=== PATIENT | female | born 1930 | race Caucasian/White ===

== ENCOUNTER 2017-06-20 09:46 | Inpatient (IN) ==
[2017-06-17 15:38] LABS: Basophils # (Auto) 0 K/mcL (0.0-0.3); Basophils % (Auto) 0.3 % (0.0-2.0); Eosinophils # (Auto) 0.1 K/mcL (0.0-0.7); Eosinophils % (Auto) 1.1 % (0.0-7.0); Granulocytes % (Auto) 74.9 % (38.0-78.0); Lymphocytes # (Auto) 1.3 K/mcL (1.5-4.8); Lymphocytes % (Auto) 16.9 % (15.5-49.0); Mean Cell Volume 93.6 fL (80.0-100.0); Mean Corpuscular HGB Conc 34.2 g/dL (31.0-36.0); Monocytes # (Auto) 0.5 K/mcL (0.1-0.9); Monocytes % (Auto) 6.8 % (1.0-12.0); Platelet Count 271 K/mcL (140-440); RBC 3.95 M/mcL (4.00-5.20); Red Cell Distribution Width 14.5 % (11.5-14.5)
[2017-06-17 15:58] LABS: Blood Urea Nitrogen 23 mg/dl (8-23)
[~2017-06-20 09:46] MED LIST: KETOROLAC 30 MG, ROPIVACAINE HCL/PF 49.5 ML, EPINEPHrine 0.5 MG, 0.9 % SODIUM CHLORIDE ... IJ SCH; ceFAZolin 1 GM VIAL IV SCH
[2017-06-20] MEDS ORDERED: GENTAMICIN SULFATE 800 MG/20 ML VIAL IR ONE (11:15)
[2017-06-20] MEDS ORDERED: KETAMINE 10 MG/ML ML ONE (11:58)
[2017-06-20] MEDS ORDERED: LIDOCAINE HCL/PF 100 MG/5 ML SYRINGE IV ONE (11:58)
[2017-06-20] MEDS ORDERED: PROPOFOL 200 MG/20 ML VIAL IV ONE (11:58)
[2017-06-20] MEDS ORDERED: GLYCOPYRROLATE 0.2 MG/ML VIAL IV ONE (11:58)
[2017-06-20] MEDS ORDERED: PHENYLEPHRINE 10 MG/ML VIAL ONE (11:58)
[2017-06-20] MEDS ORDERED: ONDANSETRON 4 MG/2 ML VIAL ONE (11:58)
[2017-06-20] MEDS ORDERED: ePHEDrine 50 MG/ML AMPUL IV ONE (11:58)
[2017-06-20] MEDS ORDERED: MIDAZOLAM 2 MG/2 ML VIAL ONE (11:58)
[2017-06-20 12:28] LABS: Appearance,Urine CLEAR; Bilirubin,Urine NEG (NEG); Color,Urine PALE YELLOW; Glucose,Urine (UA) NORM (NEG); Leukocyte Esterase,Urine 1+ /uL (NEG); Nitrate,Urine NEG (NEG); Protein,Urine NEG (NEG); Urine Blood NEG mg/dL (<0.03); Urobilinogen,Urine NEG (NEG)
[2017-06-20 12:30] LABS: Bacteria,Urine 0 /hpf (0); Mucus,Urine FEW /hpf (0); Urine RBC 2 /hpf (0-1); Urine Squamous Epithelial Cell 2 /hpf (0-4); Urine WBC 20 /hpf (0-4)
[2017-06-20] MEDS ORDERED: MEPERIDINE 25 MG/ML SYRINGE IV PRN (13:30)
[2017-06-20] MEDS ORDERED: ONDANSETRON 4 MG/2 ML VIAL IV PRN ×2 (13:30→13:37)
[2017-06-20] MEDS ORDERED: METHOCARBAMOL 1,000 MG/10 ML VIAL IV PRN (13:30)
[2017-06-20] MEDS ORDERED: BENZOCAINE/MENTHOL 1 LOZENGE PO PRN ×2 (13:30→13:37)
[2017-06-20] MEDS ORDERED: IPRATROPIUM/ALBUTEROL 3 ML AMPUL.NEB NEB PRN (13:30)
[2017-06-20] MEDS ORDERED: fentaNYL 100 MCG/2 ML VIAL IV PRN (13:30)
[2017-06-20] MEDS ORDERED: LACTATED RINGERS 1,000 ML IV SCH (13:30)
[2017-06-20] MEDS ORDERED: FLEETS ADULT ENEMA PR PRN (13:37)
[2017-06-20] MEDS ORDERED: BISACODYL 10 MG SUPP.RECT PR PRN (13:37)
[2017-06-20] MEDS ORDERED: METHOCARBAMOL 750 MG TABLET PO PRN (13:37)
[2017-06-20] MEDS ORDERED: POLYETHYLENE GLYCOL 3350 17 GM PACKET PO PRN (13:37)
[2017-06-20] MEDS ORDERED: MAGNESIUM HYDROXIDE 30 ML ORAL.SUSP PO PRN (13:37)
[2017-06-20] MEDS ORDERED: TRANEXAMIC ACID 1,000 MG/10 ML VIAL IV SCH (13:37)
--- NOTE | 2017-06-20 13:50 | Brief Operative Note ---
Date of procedure: 06/20/17 Pre-op diagnosis: DJD right knee Post-op diagnosis: same Procedure: total knee replacement Grafts/Implants: Yes (TC3 DePuy) Anesthesia: GETA Findings: arthritis Complications: none Surgeon: Elgin Cerna Speech Language Therapist: Lorne Mandujano Estimated blood loss (cc): 250 Tourniquet Time (Minutes): 30 Specimens Removed/Pathology: none sent Condition: stable Disposition: PACU
--- NOTE | 2017-06-20 14:39 | XRay Report ---
CLINICAL INFORMATION: Postop total knee prostheses COMPARISON: None. FINDINGS: Total knee prostheses is anatomically aligned. There is no osseous abnormality. Soft tissue swelling seen as expected IMPRESSION: Negative Interpreted and Authenticated by: Bolivar Steel 06/20/17
--- NOTE | 2017-06-20 14:52 | Operative Note ---
DATE OF OPERATION: 06/20/2017 PREOPERATIVE DIAGNOSIS: DJD of the right knee. POSTOPERATIVE DIAGNOSIS: DJD of the right knee. OPERATION: Right total knee replacement. SURGEON: Elgin Cerna MD RACK CARRIER: Lorne Mandujano PA-C ANESTHESIA: General done by Dr. Lance. ESTIMATED BLOOD LOSS: 250 mL TOURNIQUET TIME: 30 minutes. SUMMARY OF PROCEDURE: General anesthesia was attained. The right leg was prepped and draped. No tourniquet was used during the exposure. An incision was made from the quadriceps to the tibial tubercle. It was taken down sharply to the quadriceps and medial retinaculum. These were split longitudinally. The patella was mobilized laterally. The fat pad was debrided. The anterior meniscus were resected. The ACL was released. The patient had no flexion contracture. She was in quite a bit of varus. The intramedullary canal of the femur was drilled and then reamed. The distal cut was made. We then exposed the tibia. This was reamed. The proximal guide was placed and the cut was made. The tibia sized to a 2-1/2. We then checked the flexion and extension gap and got a balance gap with a 15 mm trial. The femur was then sized to a 3. The rotation was adjusted to match [employer] line. The anterior, posterior, bevel, and notch cuts were made. The tibia was next prepared. This was done by drilling for a stem and then broaching. The patella was everted. Its thickness was 20 mm. I did a measured resection down to 12 mm. The patella sized to a 35. The internal release was done of the lateral retinaculum. The joint surfaces were thoroughly irrigated. Bone cement was applied to the components using the cement gun and also to the bone. The components were cemented in. The knee was held in full extension while the cement cured. Excess cement was removed throughout the curing process from the gutters using cebatomes and a hemostat. The tourniquet was let down. The tourniquet was only use for cementation. Bleeding points were coagulated. There was minimal bleeding. The no-touch test showed a lateral release was not needed. Stability during the surgery showed 2 mm of opening of the medial and lateral joint lines with varus and valgus stressing and 0, 45 and 90 degrees of flexion. The anterior drawer was minimal. There was no posterior drawer. The quadriceps was closed with buried sutures of #2 FiberWire. The medial retinaculum was closed with running locking 0 Maxon as this was the quadriceps (using a second layer). The subcutaneous tissue was closed with interrupted buried 2-0 Monocryl. The skin was closed with Dermabond. A sterile compressive dressing was applied. Throughout the case multimodal injection was done of the periosteum and muscle repairs using a total of 100 mL of mixture. Sponge and needle count was correct. The patient tolerated the procedure well and was taken to the recovery room in stable condition. TJF:dakota Job ID: [id number] Doc ID: [id number] Elgin Cerna MD
[2017-06-20] MEDS: 0.9 % SODIUM CHLORIDE 10 ML SYRINGE IV SCH ×2 (15:20→20:55)
[2017-06-20] MEDS: 0.9 % SODIUM CHLORIDE 1,000 ML IV SCH ×2 (15:20→23:30)
[2017-06-20] MEDS: HYDROcodone/APAP 10/325MG TABLET PO PRN ×2 (16:00→20:54)
[2017-06-20] MEDS: HYDROmorphone 2 MG/ML SYRINGE IV PRN ×2 (16:21→17:26)
[2017-06-20] MEDS: ceFAZolin 1 GM VIAL IV SCH (19:03)
[2017-06-20] MEDS: ATORVASTATIN 20 MG TABLET PO SCH (20:53)
[2017-06-20] MEDS: DOCUSATE SODIUM 100 MG CAPSULE PO SCH (20:53)
[2017-06-20] MEDS: SENNOSIDES 1 TABLET PO SCH (20:53)
[2017-06-20] MEDS: LATANOPROST OPHTH DROPS 2.5ML BOTTLE OU SCH (20:55)
[2017-06-21] MEDS: HYDROcodone/APAP 10/325MG TABLET PO PRN ×6 (00:44→20:59)
[2017-06-21] MEDS: ceFAZolin 1 GM VIAL IV SCH (03:30)
[2017-06-21] MEDS: 0.9 % SODIUM CHLORIDE 10 ML SYRINGE IV SCH ×3 (05:43→21:33)
[2017-06-21] MEDS: 0.9 % SODIUM CHLORIDE 1,000 ML IV SCH ×2 (05:43→09:19)
--- NOTE | 2017-06-21 06:37 | Orthopedic Progress Note ---
Subjective Patient information: Note initiated : 06/21/17 at 6:35 am Service Date, if different from initiated Date: [] Patient: Nga Krishnamurthy 86 y/o F admitted on 06/20/17 for Right Total Knee Arthroplasty. Chief Complaint: [] Principal diagnosis: knee joint replacement Objective Vital signs: Vital Signs Temp Pulse Pulse Resp BP BP Pulse Ox 06/21/17 04:00 97.5 F 54 L 14 148/66 95 06/20/17 23:11 52 L 14 97 06/20/17 23:10 97.6 F 52 L 14 111/58 88 L 06/20/17 21:01 98.1 F 59 L 16 136/66 97 06/20/17 20:00 95 06/20/17 17:00 54 L 16 170/70 99 06/20/17 16:30 57 L 16 150/70 99 06/20/17 16:00 55 L 16 152/70 97 06/20/17 15:45 53 L 16 170/90 98 06/20/17 15:30 62 16 166/69 97 06/20/17 15:15 56 L 16 160/73 96 06/20/17 15:00 97.1 F 57 L 16 152/59 98 06/20/17 14:48 97.6 F 60 19 159/48 97 06/20/17 14:43 60 15 163/54 97 06/20/17 14:28 65 18 147/54 100 06/20/17 14:23 60 18 144/50 100 06/20/17 14:18 61 15 159/46 100 06/20/17 14:13 59 L 16 154/54 100 06/20/17 14:08 60 16 145/48 100 06/20/17 14:03 62 17 147/50 100 06/20/17 13:58 98.0 F 100 H 17 131/42 95 06/20/17 09:46 98.2 F 38 L 16 169/82 94 Intake and Output 06/20/17 06/21/17 06/21/17 21:59 05:59 13:59 Intake Total 200 / 200 1560 / 1560 Output Total 51 / 51 252 / 252 Balance 149 / 149 1308 / 1308 Intake: IV 1000 / 1000 Sodium Chloride 0.9% 1,000 ml @ 1000 / 1000 100 mls/hr IV .Q10H ASTRID Rx#: [id number] Oral 200 / 200 560 / 560 Output: Void Amount 50 / 50 250 / 250 # of times incontinent of urine 2 / 2 Other: Meal Lunch Percent of Meal Consumed 75% Weight 150 lb 3.2 oz Intake & Output: Intake & Output 06/20/17 06/21/17 06/21/17 21:59 05:59 13:59 Intake Total 200 / 200 1560 / 1560 Output Total 51 / 51 252 / 252 Balance 149 / 149 1308 / 1308 Weight 150 lb 3.2 oz Intake: IV 1000 / 1000 Sodium Chloride 0.9% 1,000 ml @ 1000 / 1000 100 mls/hr IV .Q10H ASTRID Rx#: [id number] Oral 200 / 200 560 / 560 Output: Void Amount 50 / 50 250 / 250 # of times incontinent of urine 2 2 Other: Meal Lunch Percent of Meal Consumed 75% Dressing: Yes clean, Yes dry Weight bearing status: full Extremities exam IM: Yes Foot pink and warm, Yes neurovascular intact - Labs CBC & BMP: 06/17/17 14:42 06/17/17 14:41 Labs: Orthopedic Labs 06/17/17 14:42 PT 13.8 INR 1.0 06/21/17 06/17/17 06:00 14:42 Hgb Pending 12.6 Hct Pending 36.9 Assessment and Plan (1) Knee joint replacement status doing well. Continue PT and Lovenox Status: Acute Priority: High Qualifiers: Laterality: right Qualified Code(s): Z96.651 - Presence of right artificial knee joint
[2017-06-21] MEDS: ENOXAPARIN 30 MG/0.3 ML SYRINGE SQ SCH (09:16)
[2017-06-21] MEDS: SPIRONOLACTONE 25 MG TABLET PO SCH (09:17)
[2017-06-21] MEDS: THEOPHYLLINE ANHYDROUS 100 MG TAB.SR.12H PO SCH (09:17)
[2017-06-21] MEDS: OMEPRAZOLE 20 MG CAPSULE PO SCH (09:17)
[2017-06-21] MEDS: MAGNESIUM OXIDE 400 MG TABLET PO SCH (09:18)
[2017-06-21] MEDS: CALCIUM W/VIT D3 500 MG TABLET PO SCH (09:18)
[2017-06-21] MEDS: DOCUSATE SODIUM 100 MG CAPSULE PO SCH ×2 (09:18→20:11)
[2017-06-21] MEDS: FERROUS SULFATE 325 MG TABLET PO SCH (09:18)
[2017-06-21] MEDS: LOSARTAN 50 MG TABLET PO SCH (09:19)
[2017-06-21] MEDS: SENNOSIDES 1 TABLET PO SCH (20:10)
[2017-06-21] MEDS: ATORVASTATIN 20 MG TABLET PO SCH (20:11)
[2017-06-21] MEDS: LATANOPROST OPHTH DROPS 2.5ML BOTTLE OU SCH (20:11)
[2017-06-22] MEDS: HYDROcodone/APAP 10/325MG TABLET PO PRN ×2 (00:52→06:32)
[2017-06-22] MEDS: 0.9 % SODIUM CHLORIDE 10 ML SYRINGE IV SCH (05:15)
[2017-06-22] MEDS: OMEPRAZOLE 20 MG CAPSULE PO SCH (07:30)
[2017-06-22] MEDS ORDERED: ONDANSETRON ODT 4 MG TABLET SL ONE (07:47)
[2017-06-22] MEDS ORDERED: FLU VACC QS2017-18 36MOS UP/PF 60 MCG/0.5 ML SYRINGE IM ONE (09:00)
[2017-06-22] MEDS: LOSARTAN 50 MG TABLET PO SCH (09:01)
[2017-06-22] MEDS: FERROUS SULFATE 325 MG TABLET PO SCH (09:01)
[2017-06-22] MEDS: DOCUSATE SODIUM 100 MG CAPSULE PO SCH (09:01)
[2017-06-22] MEDS: MAGNESIUM OXIDE 400 MG TABLET PO SCH (09:01)
[2017-06-22] MEDS: CALCIUM W/VIT D3 500 MG TABLET PO SCH (09:01)
[2017-06-22] MEDS: ENOXAPARIN 30 MG/0.3 ML SYRINGE SQ SCH (09:02)
[2017-06-22] MEDS: THEOPHYLLINE ANHYDROUS 100 MG TAB.SR.12H PO SCH (09:03)
[2017-06-22] MEDS: SPIRONOLACTONE 25 MG TABLET PO SCH (09:06)
--- NOTE | 2017-06-22 09:47 | Orthopedic Progress Note ---
Subjective Patient information: Note initiated : 06/22/17 at 9:26 am Service Date, if different from initiated Date: [] Patient: Nga Krishnamurthy 86 y/o F admitted on 06/20/17 for Right Total Knee Arthroplasty. Chief Complaint: [] Principal diagnosis: knee joint replacement Interval history: Patient is feeling nauseas and weak this morning. She does not feel like leaving to a care facility currently. She denies any numbness/tingling, CP, PHELPS, or any other acute symptoms. Objective Vital signs: Vital Signs Temp Pulse Resp BP BP Pulse Ox 06/22/17 08:15 139/61 06/22/17 06:23 98.1 F 16 195/67 94 06/22/17 03:23 98.2 F 58 L 22 190/56 92 06/22/17 00:00 97.6 F 55 L 20 167/58 94 06/21/17 19:55 98.1 F 58 L 18 177/55 94 06/21/17 16:00 98.3 F 24 H 192/70 92 06/21/17 13:00 54 L 06/21/17 11:11 97.7 F 16 152/76 98 Intake and Output 06/21/17 06/22/17 06/22/17 21:59 05:59 13:59 Intake Total 640 / 640 500 / 500 Output Total 551 / 551 51 / 51 50 / 50 Balance 89 / 89 449 / 449 -50 / -50 Intake: Oral 640 / 640 500 / 500 Output: Void Amount 550 / 550 50 / 50 50 / 50 # of times incontinent of urine Other: Meal Dinner Percent of Meal Consumed Refused # Voids 1 Weight 153 lb Intake & Output: Intake & Output 06/21/17 06/22/17 06/22/17 21:59 05:59 13:59 Intake Total 640 / 640 500 / 500 Output Total 551 / 551 51 / 51 50 / 50 Balance 89 / 89 449 / 449 -50 / -50 Weight 153 lb Intake: Oral 640 / 640 500 / 500 Output: Void Amount 550 / 550 50 / 50 50 / 50 # of times incontinent of urine Other: Meal Dinner Percent of Meal Consumed Refused # Voids 1 Incision: Yes healing Incision clean and dry: Yes Weight bearing status: full Neurological exam IM: Yes neurovascular intact Extremities exam IM: No Ghassan's sign, Yes Foot pink and warm - Labs CBC & BMP: 06/22/17 05:14 06/17/17 14:41 Labs: Orthopedic Labs 06/17/17 14:42 PT 13.8 INR 1.0 06/22/17 06/21/17 06/17/17 05:14 06:00 14:42 Hgb 10.5 L 10.4 L 12.6 Hct 31.3 L 30.8 L 36.9 Assessment and Plan (1) Knee joint replacement status 1. Discharge to SNF 2. Follow up in 10 days with ortho. Status: Acute Priority: High Qualifiers: Laterality: right Qualified Code(s): Z96.651 - Presence of right artificial knee joint
[2017-06-23] MEDS ORDERED: ALENDRONATE SODIUM 70 MG TABLET PO SCH (07:30)
== END 2017-06-22 09:50 | DRG 470 ==
LOC: MEDSUR 09:46
PROVIDERS: ADMIT Orthopaedic Surgery Foot and Ankle Surgery; ATTEND Orthopaedic Surgery Foot and Ankle Surgery

== ENCOUNTER 2020-04-14 17:20 | Inpatient (IN) ==
[2020-04-14] MEDS ORDERED: IOPAMIDOL 100 ML BOTTLE IV ONE (17:21)
[2020-04-14] MEDS ORDERED: 0.9 % SODIUM CHLORIDE 1,000 ML IV ONE ×3 (17:41→19:58)
--- NOTE | 2020-04-14 18:12 | Emergency Department Note ---
Weakness HPI General Chief complaint: Weakness Stated complaint: Weakness, Decreased appetite, fever Time Seen by Provider: 04/14/20 17:35 Source: patient Mode of arrival: wheelchair Limitations: no limitations History of Present Illness HPI Narrative: Narrative: 89-year-old female who was feeling weak and recently developed a fever today. Complaining of cough. Denies other sick exposures. Denies difficulty urinating or with a bowel movement. Loss of appetite noted. She is also complaining of some generalized back pain which is new with the fever Related Data Home Medications Medication Instructions Recorded Confirmed alendronate 70 mg PO WEEKLY 06/17/17 04/14/20 hydrocodone-acetaminophen 1 - 2 tab PO Q4HP PRN 06/17/17 04/14/20 latanoprost 1 gtt OU HS 06/17/17 04/14/20 gabapentin 300 mg capsule 300 mg PO TID 05/06/18 04/14/20 famotidine 20 mg PO DAILY 11/07/18 04/14/20 losartan 100 mg PO QDAY 04/14/20 04/14/20 Previous Rx's Medication Instructions Recorded hydrochlorothiazide 25 mg tablet 25 mg PO QDAY #90 tab 11/10/19 cholecalciferol (vitamin D3) 50 2,000 unit PO QDAY #90 tab 03/08/20 mcg (2,000 unit) tablet Allergies Allergy/AdvReac Type Severity Reaction Status Date / Time atorvastatin Allergy Unknown Joint pain Verified 03/08/20 09:22 bupivacaine [From Marcaine] Allergy Unknown Local Verified 03/08/20 09:22 Reaction Review of Systems ROS ROS Narrative: Narrative: All systems ED: reviewed and negative except as stated. [facility] Narrative Patient History Narrative: Narrative: Medical/Surgical/Family History All Active Problems Pulmonary embolus (Acute) GI bleed (Acute) Weakness (Acute) Degenerative joint disease of low back (Acute) Sepsis (Acute) Pneumonia (Acute) Anemia in stage 3 chronic kidney disease (Chronic) Secondary hyperparathyroidism of renal origin (Chronic) Hyperkalemia, diminished renal excretion (Acute) Right renal atrophy (Chronic) Benign hypertension with CKD (chronic kidney disease) stage III (Chronic) Chronic kidney disease, stage III (moderate) (Chronic) Sciatica (Chronic) Osteoporosis (Chronic) Colon cancer (Chronic ~2005) Obstructive sleep apnea (Chronic) Neuralgia (Chronic) Insomnia (Chronic) Hypertension (Chronic) Hyperlipidemia (Chronic) Glaucoma (Chronic) Fatigue (Chronic) Diverticulosis (Chronic) Depression (Chronic) CAD (coronary artery disease) (Chronic) Bradycardia (Chronic) Barretts esophagus (Chronic) Anemia (Chronic) Knee joint replacement status (Chronic) Medical History Anemia (Chronic) Barretts esophagus (Chronic) Bradycardia (Chronic) CAD (coronary artery disease) (Chronic) Colon cancer (Chronic ~2005) Depression (Chronic) Diverticulosis (Chronic) Fatigue (Chronic) Glaucoma (Chronic) Hyperlipidemia (Chronic) Hypertension (Chronic) Insomnia (Chronic) Neuralgia (Chronic) Obstructive sleep apnea (Chronic) Osteoporosis (Chronic) Sciatica (Chronic) Surgical History History of arthroscopic knee surgery (Chronic) Left History of carpal tunnel surgery of right wrist (Chronic 09/23/87) History of cataract surgery (Chronic ~09/23/11) History of cholecystectomy (Chronic ~09/23/1959) History of colonoscopy (Chronic) History of esophagogastroduodenoscopy (EGD) (Chronic) History of hysterectomy (Chronic ~09/23/1957) History of tonsillectomy (Chronic) History of total right knee replacement (Chronic) Family History Sister , Age 65 Acute myocardial infarction Diabetes Renal failure Family history of Gout Heart disease Kidney disease Father Migraines Acute myocardial infarction Mother , Age 75 Heart disease Cerebrovascular accident Hypertensive CHF Acute myocardial infarction Brother , Age 40 Sarcoma Traumatic injury Social History Smoking Status: Current every day smoker Alcohol Intake Frequency: does not drink Substance Use: does not use Exam Narrative Narrative: Narrative: Febrile. Appears ill. Normocephalic atraumatic. Conjunctive are clear sclerae white nonicteric. No nasal discharge or congestion. Oropharynx with tacky buccal mucosa-she appears dehydrated. Neck is supple without lymphadenopathy or thyromegaly. Heart is regular rate and rhythm. Lungs are clear to auscultation bilaterally without wheezes rales rhonchi or respiratory distress. Abdomen is soft nontender nondistended. No peritoneal signs or guarding. No pedal edema-I did look at her legs that she was complaining of some leg pain I do not see any erythema or any sores or other signs of infection or DVT. She is arousable but she does seem sluggish and slow to respond. General Limitations: no limitations Course Vital Signs Vital signs: Vital Signs Temperature 99.9 F H 04/14/20 17:22 Pulse Rate 103 H 04/14/20 17:22 Respiratory Rate 20 04/14/20 17:22 Blood Pressure 89/75 04/14/20 17:22 Pulse Oximetry (%) 91 04/14/20 17:22 Temperature 99.0 F 04/14/20 22:14 Pulse Rate 82 04/14/20 22:14 Respiratory Rate 15 04/14/20 22:14 Blood Pressure 133/80 04/14/20 22:04 Pulse Oximetry (%) 93 04/14/20 22:14 MDM MDM Narrative Medical decision making narrative: Narrative: Ordered chest x-ray EKG and laboratory work-up. Start treatment with IV fluids. We will check for COVID virus as she is febrile with a cough. Other things in the differential which could cause fever cough and weakness include pneumonia UTI abdominal infections like diverticulitis Chest x-ray shows possible pneumonia Laboratory is not very revealing with a normal lactic acid and no leukocytosis. Urinalysis looked normal. However she is noted to have elevated procalcitonin 0.24. We started Zosyn. Blood pressure was trending down so we continued to treat with IV fluids. She got 2 L before she went to the CT scanner to further investigate the cause for her fever. CT scan of the chest abdomen pelvis showed thyroid nodule and bilateral pneumonia with 2 PEs. Right heart strain is not seen however. We will start Lovenox 1 mg/kg therapeutic dose for the PEs. She is not on blood thinners prior to this-I did discuss this with her but she does not recall having previous pulmonary emboli despite this being on her chart. After giving her the Zosyn wrote for a dose of vancomycin. After coming back from the CT scan her blood pressure normalized. I discussed the case with Dr. Nazario, our hospitalist. He agreed to accept the patient for further care and evaluation. We will continue the Zosyn and vancomycin. As needed Levophed if her blood pressure starts trending down again. She will go to the ICU. I wrote for transition order Lab Data Lab results reviewed: Yes I reviewed the patient's lab results. Result diagrams: 04/14/20 18:16 04/14/20 18:16 Labs: Lab Results 04/14/20 04/14/20 04/14/20 Range/Units 18:15 18:16 18:16 WBC 9.6 (4.50-11.00) K/mcL RBC 3.73 (3.59-5.38) M/mcL Hgb 11.5 (11.2-15.7) g/dL Hct 35.9 (34.1-44.9) % MCV 96.2 (80.0-100.0) fL MCH 30.8 (26.0-34.0) pg MCHC 32.0 (31.0-36.0) g/dL RDW 14.4 (11.5-14.5) % Plt Count 240 (140-440) K/mcL MPV 9.9 (7.4-10.4) fL Gran % 82.3 H (38.0-78.0) % Lymph % (Auto) 8.2 L (15.5-49.0) % Dickinson % (Auto) 7.8 (1.0-12.0) % Eos % (Auto) 1.5 (0.0-7.0) % Baso % (Auto) 0.2 (0.0-2.0) % Gran # 7.87 (1.80-8.00) K/mcL Lymph # (Auto) 0.78 L (1.50-4.80) K/mcL Dickinson # (Auto) 0.75 (0.10-0.90) K/mcL Eos # (Auto) 0.14 (0.00-0.70) K/mcL Baso # (Auto) 0.02 (0.00-0.30) K/mcL VBG Lactic Acid (0.5-2.0) mmol/L Sodium 136 (133-145) mmol/L Potassium 4.5 (3.3-5.1) mmol/L Chloride 101 (96-108) mmol/L Carbon Dioxide 22 (22-30) mmol/L Anion Gap 13.0 (8-16) BUN 20 (8-23) mg/dl Creatinine 1.3 H (0.6-1.1) mg/dl GFR Calculation 36 Glucose 120 H (70-105) mg/dL Calcium 9.3 (8.6-10.4) mg/dl Magnesium 1.5 L (1.6-2.5) mg/dL Total Bilirubin 0.7 (0.0-1.0) mg/dL AST 10 (0-37) U/l ALT 5 (0-40) U/l Alkaline Phosphatase 92 (39-117) U/L Total Protein 5.7 L (5.9-8.4) gm/dL Albumin 2.9 L (3.2-5.2) gm/dL Globulin 2.8 (2.2-3.7) gm/dL Albumin/Globulin Ratio 1.0 (1.0-2.3) Procalcitonin 0.24 (<0.10) ng/mL Urine Color Urine Appearance Urine pH (5.0-9.0) Ur Specific [place] (1.000-1.035) Urine Protein (NEG) mg/dL Urine Glucose (UA) (NEG) mg/dL Urine Ketones (NEG) mg/dL Urine Occult Blood (<0.03) mg/dL Urine Nitrate (NEG) Urine Bilirubin (NEG) mg/dL Urine Urobilinogen (NEG) mg/dL Ur Leukocyte Esterase (NEG) /uL Urine RBC (0-1) /hpf Urine WBC (0-4) /hpf Ur Squamous Epith Cells (0-4) /hpf Ur Transition Epith Cell (0-2) /hpf Urine Bacteria (0) /hpf Urine Mucus (0) /hpf Ur Culture Indicated? 04/14/20 04/14/20 Range/Units 18:16 20:50 WBC (4.50-11.00) K/mcL RBC (3.59-5.38) M/mcL Hgb (11.2-15.7) g/dL Hct (34.1-44.9) % MCV (80.0-100.0) fL MCH (26.0-34.0) pg MCHC (31.0-36.0) g/dL RDW (11.5-14.5) % Plt Count (140-440) K/mcL MPV (7.4-10.4) fL Gran % (38.0-78.0) % Lymph % (Auto) (15.5-49.0) % Dickinson % (Auto) (1.0-12.0) % Eos % (Auto) (0.0-7.0) % Baso % (Auto) (0.0-2.0) % Gran # (1.80-8.00) K/mcL Lymph # (Auto) (1.50-4.80) K/mcL Dickinson # (Auto) (0.10-0.90) K/mcL Eos # (Auto) (0.00-0.70) K/mcL Baso # (Auto) (0.00-0.30) K/mcL VBG Lactic Acid 1.1 (0.5-2.0) mmol/L Sodium (133-145) mmol/L Potassium (3.3-5.1) mmol/L Chloride (96-108) mmol/L Carbon Dioxide (22-30) mmol/L Anion Gap (8-16) BUN (8-23) mg/dl Creatinine (0.6-1.1) mg/dl GFR Calculation Glucose (70-105) mg/dL Calcium (8.6-10.4) mg/dl Magnesium (1.6-2.5) mg/dL Total Bilirubin (0.0-1.0) mg/dL AST (0-37) U/l ALT (0-40) U/l Alkaline Phosphatase (39-117) U/L Total Protein (5.9-8.4) gm/dL Albumin (3.2-5.2) gm/dL Globulin (2.2-3.7) gm/dL Albumin/Globulin Ratio (1.0-2.3) Procalcitonin (<0.10) ng/mL Urine Color Yellow Urine Appearance Clear Urine pH 6.0 (5.0-9.0) Ur Specific [place] 1.016 (1.000-1.035) Urine Protein 30 A (NEG) mg/dL Urine Glucose (UA) Negative (NEG) mg/dL Urine Ketones Neg (NEG) mg/dL Urine Occult Blood Neg (<0.03) mg/dL Urine Nitrate Neg (NEG) Urine Bilirubin Neg (NEG) mg/dL Urine Urobilinogen Neg (NEG) mg/dL Ur Leukocyte Esterase Neg (NEG) /uL Urine RBC 0 (0-1) /hpf Urine WBC 2 (0-4) /hpf Ur Squamous Epith Cells 0 (0-4) /hpf Ur Transition Epith Cell < 1 (0-2) /hpf Urine Bacteria 0 (0) /hpf Urine Mucus Few (0) /hpf Ur Culture Indicated? No Radiology Data Radiology results reviewed: Yes I reviewed the patient's radiology results. Radiology results narrative: Chest x-ray shows possible right lower lobe pneumonia EKG Data EKG #1: EKG attestation: Yes I reviewed and interpreted this EKG. EKG results narrative: EKG just shows atrial fibrillation CC TIME Critical Care Time Critical Care Time: Yes Total Critical Care Time: 30 Attestation: 30 minutes of additional critical care time which includes reviewing her studies, serial exams and evaluation, documentation and coordination of care. I was immediately available to the patient the entire time she was in the ER Discharge Plan Patient/Caregiver Discharge Instructions Pt seen by DIRECTOR OF VALUATION/PA only: No Clinical Impression: Sepsis Qualifiers: Sepsis type: sepsis due to unspecified organism Sepsis acute organ dysfunction status: with acute organ dysfunction Severe sepsis acute organ dysfunction type: unspecified Severe sepsis shock status: without septic shock Qualified Code(s): A41.9 - Sepsis, unspecified organism Pulmonary embolus Qualifiers: Pulmonary embolism type: other Chronicity: acute Acute cor pulmonale presence: without acute cor pulmonale Qualified Code(s): I26.99 - Other pulmonary embolism without acute cor pulmonale Pneumonia Qualifiers: Pneumonia type: due to unspecified organism Laterality: bilateral Lung location: lower lobe of lung Qualified Code(s): J18.9 - Pneumonia, unspecified organism Patient Disposition: Xfer As Inpt ([facility]) Condition: Critical Follow up with: Jannette Gutierrez MD [Primary Care Provider] - Prescriptions: No Action hydrochlorothiazide 25 mg tablet 25 mg PO QDAY Qty: 90 RF: 1 gabapentin 300 mg capsule 300 mg PO TID RF: 0 cholecalciferol (vitamin D3) 50 mcg (2,000 unit) tablet 2,000 unit PO QDAY Qty: 90 RF: 4 latanoprost 1 GTT bottle 1 gtt OU HS RF: 0 alendronate 70 MG tablet 70 mg PO WEEKLY RF: 0 hydrocodone-acetaminophen 1 EACH tablet 1 - 2 tab PO Q4HP PRN (Reason: Pain) RF: 0 famotidine 20 MG tablet 20 mg PO DAILY RF: 0 losartan 50 mg tablet 100 mg PO QDAY RF: 0
[2020-04-14 19:19] LABS: ALT/SGPT 5 U/l (0-40); AST/SGOT 10 U/l (0-37); Albumin 2.9 gm/dL (3.2-5.2); Alkaline Phosphatase 92 U/L (39-117); Bilirubin,Total 0.7 mg/dL (0.0-1.0); Blood Urea Nitrogen 20 mg/dl (8-23); Calcium 9.3 mg/dl (8.6-10.4); Carbon Dioxide 22 mmol/L (22-30); Chloride 101 mmol/L (96-108); Globulin 2.8 gm/dL (2.2-3.7); Glomerular Filtration Rate 36; Glucose 120 mg/dL (70-105)
[2020-04-14 19:22] LABS: Basophils # (Auto) 0.02 K/mcL (0.00-0.30); Basophils % (Auto) 0.2 % (0.0-2.0); Eosinophils # (Auto) 0.14 K/mcL (0.00-0.70); Eosinophils % (Auto) 1.5 % (0.0-7.0); Granulocytes % (Auto) 82.3 % (38.0-78.0); Hematocrit 35.9 % (34.1-44.9); Hemoglobin 11.5 g/dL (11.2-15.7); Lymphocytes # (Auto) 0.78 K/mcL (1.50-4.80); Lymphocytes % (Auto) 8.2 % (15.5-49.0); Mean Cell Volume 96.2 fL (80.0-100.0); Mean Platelet Volume 9.9 fL (7.4-10.4); Monocytes # (Auto) 0.75 K/mcL (0.10-0.90); Monocytes % (Auto) 7.8 % (1.0-12.0); Platelet Count 240 K/mcL (140-440); RBC 3.73 M/mcL (3.59-5.38); Red Cell Distribution Width 14.4 % (11.5-14.5); WBC 9.6 K/mcL (4.50-11.00)
[2020-04-14] MEDS ORDERED: ACETAMINOPHEN 325 MG TABLET PO ONE (19:26)
[2020-04-14] MEDS ORDERED: PIPERACILLIN SODIUM/TAZOBACTAM 3.375 GM in DEXTROSE 5% IN WATER 50 ML IV ONE (21:43)
[2020-04-14 21:52] LABS: Appearance,Urine CLEAR; Bacteria,Urine 0 /hpf (0); Bilirubin,Urine NEG (NEG); Color,Urine YELLOW; Culture Indicated,Urine NO; Glucose,Urine (UA) NEGATIVE (NEG); Ketones,Urine NEG (NEG); Leukocyte Esterase,Urine NEG /uL (NEG); Mucus,Urine FEW /hpf (0); Nitrate,Urine NEG (NEG); Protein,Urine 30 mg/dL (NEG); Specific Gravity,Urine 1.016 (1.000-1.035); Urine Blood NEG mg/dL (<0.03); Urine RBC 0 /hpf (0-1); Urine Squamous Epithelial Cell 0 /hpf (0-4); Urine Transitional Epi Cells < 1 /hpf (0-2); Urine WBC 2 /hpf (0-4); Urobilinogen,Urine NEG (NEG)
[2020-04-14] MEDS ORDERED: ENOXAPARIN 80 MG/0.8 ML SYRINGE SQ ONE (22:30)
[2020-04-14] MEDS ORDERED: VANCOMYCIN 1,000 MG in 0.9 % SODIUM CHLORIDE 250 ML IV ONE (22:31)
[2020-04-14] MEDS ORDERED: ONDANSETRON 4 MG/2 ML VIAL IV PRN (22:34)
[2020-04-14] MEDS ORDERED: 0.9 % SODIUM CHLORIDE 250 ML IV PRN (22:45)
[2020-04-14] MEDS ORDERED: 0.9 % SODIUM CHLORIDE 1,000 ML IV SCH ×2 (22:45→23:30)
[2020-04-14] MEDS ORDERED: NOREPINEPHRINE BITARTRATE 16 MG in 0.9 % SODIUM CHLORIDE 234 ML IV SCH (22:45)
[2020-04-14] MEDS ORDERED: MAGNESIUM SULFATE 2 GM/50 ML BAG IV PRN (23:23)
[2020-04-14] MEDS ORDERED: ACETAMINOPHEN 325 MG TABLET PO PRN (23:23)
[2020-04-14] MEDS ORDERED: IPRATROPIUM/ALBUTEROL 3 ML AMPUL.NEB NEB PRN (23:23)
[2020-04-14] MEDS ORDERED: POTASSIUM CHLORIDE 20 MEQ TABLET PO PRN ×2 (23:23)
[2020-04-14] MEDS ORDERED: POTASSIUM CHLORIDE 40 MEQ in DEXTROSE 5% IN WATER 500 ML IV PRN (23:23)
[2020-04-14] MEDS ORDERED: MAGNESIUM SULFATE 8.12 MEQ in DEXTROSE 5% IN WATER 50 ML IV ONE (23:23)
[2020-04-14] MEDS ORDERED: SENNOSIDES 1 TABLET PO PRN (23:23)
[2020-04-14] MEDS ORDERED: POLYETHYLENE GLYCOL 3350 17 GM PACKET PO PRN (23:23)
--- NOTE | 2020-04-14 23:23 | Internal Med History&Physical ---
HPI History of Present Illness Patient information: Note initiated : 04/14/20 at 11:09 pm Service Date, if different from initiated Date: [] Patient: Nga Krishnamurthy a 89 y/o F admitted on for Weakness, Decreased appetite, fever. Chief Complaint: [] History of present illness: Ms. Krishnamurthy is a 89 year old F Zentz to the ED with increased weakness poor appetite and cough for about 3 days. She does not recall if she has been fevers. She has about a UA today in the ED and found to be mildly hypotensive initially and tachycardic. She received several liters of fluid which brought her blood pressure up to the low 100s. CT chest abdomen pelvis showed some bilateral lower lobe infiltrates as well as some PEs in the right upper lobe and lower lobe lung. CT also showed right hilar lymphadenopathy. She does have a history of PE and was on Eliquis in the past but that was stopped in October 2018 because of GI bleed. And old notes show chronic bradycardia but she has declined a pacemaker although her heart rate here is tachycardic, unknown what baseline value is. Procalcitonin is borderline at 0.24. Lactate is okay. Patient was recently admitted to [facility] for significant weakness and recently also been into the [facility] ER for suspected opioid overdose., Blood pressure was elevated. Diagnosed with UTI. No showed atrial fibrillation. Review of Systems: Pertinent positives as above. Denies headache/fever/chills/nausea/vomiting/chest or abdominal pain/diarrhea. Remaining 10 point review of system reviewed negative PFSH PFS Medical History Anemia (Chronic) Barretts esophagus (Chronic) Bradycardia (Chronic) CAD (coronary artery disease) (Chronic) Colon cancer (Chronic ~2005) Depression (Chronic) Diverticulosis (Chronic) Fatigue (Chronic) Glaucoma (Chronic) Hyperlipidemia (Chronic) Hypertension (Chronic) Insomnia (Chronic) Neuralgia (Chronic) Obstructive sleep apnea (Chronic) Osteoporosis (Chronic) Sciatica (Chronic) Surgical History History of arthroscopic knee surgery (Chronic) Left History of carpal tunnel surgery of right wrist (Chronic 09/23/87) History of cataract surgery (Chronic ~09/23/11) History of cholecystectomy (Chronic ~09/23/1959) History of colonoscopy (Chronic) History of esophagogastroduodenoscopy (EGD) (Chronic) History of hysterectomy (Chronic ~09/23/1957) History of tonsillectomy (Chronic) History of total right knee replacement (Chronic) Family History Sister , Age 65 Acute myocardial infarction Diabetes Renal failure Family history of Gout Heart disease Kidney disease Father Migraines Acute myocardial infarction Mother , Age 75 Heart disease Cerebrovascular accident Hypertensive CHF Acute myocardial infarction Brother , Age 40 Sarcoma Traumatic injury Social History (Updated 03/08/20 @ 09:39 by Celeste Zhu MD) marital status: occupational status: retired occupation: RN physical activity: none smoking status: Current every day smoker alcohol intake frequency: does not drink substance use type: does not use seatbelt use: always MEDS/ALLERGIES Home Medications and Allergies Home Medications Medication Instructions Recorded Confirmed Type alendronate 70 mg PO WEEKLY 06/17/17 04/14/20 History hydrocodone-acetaminophen 1 - 2 tab PO Q4HP PRN 06/17/17 04/14/20 History latanoprost 1 gtt OU HS 06/17/17 04/14/20 History gabapentin 300 mg capsule 300 mg PO TID 05/06/18 04/14/20 History famotidine 20 mg PO DAILY 11/07/18 04/14/20 History hydrochlorothiazide 25 mg tablet 25 mg PO QDAY #90 tab 11/10/19 04/14/20 Rx cholecalciferol (vitamin D3) 50 2,000 unit PO QDAY #90 tab 03/08/20 04/14/20 Rx mcg (2,000 unit) tablet losartan 100 mg PO QDAY 04/14/20 04/14/20 History Allergies Allergy/AdvReac Type Severity Reaction Status Date / Time atorvastatin Allergy Unknown Joint pain Verified 03/08/20 09:22 bupivacaine [From Marcaine] Allergy Unknown Local Verified 03/08/20 09:22 Reaction EXAM Constitutional Vitals: Temp Pulse Resp BP Pulse Ox 99.0 F 79 18 98/81 95 04/14/20 22:14 04/14/20 23:02 04/14/20 23:02 04/14/20 23:02 04/14/20 23:02 Exam: General: Lethargic, No acute Distress Eyes/N/T: EOMI, PERRL, dry MM Head/Neck: neck supple, normocephalic atraumatic CV: RRR, No murmurs, normal s1/s2 Pulm: Clear b/l, no wheezing/rhonchi/rales Abd: soft, nontender, +BS x4 Ext: no clubbing/cyanosis/edema Neuro: Drowsy but awakens to voice. Follows commands. no focal deficits, moves all extremities, CN 2-12 grossly intact, symmetrical strength b/l upper/lower, sensations intact b/l upper/lower Skin: warm/dry DATA Data Completed and Pending Labs on day of discharge: Labs from last 24 hours 04/14/20 04/14/20 04/14/20 20:50 18:57 18:50 WBC RBC Hgb Hct MCV MCH MCHC RDW Plt Count MPV Gran % Lymph % (Auto) [place] % (Auto) Eos % (Auto) Baso % (Auto) Gran # Lymph # (Auto) [place] # (Auto) Eos # (Auto) Baso # (Auto) Total Counted Band Neutrophils % Platelet Estimate RBC Morphology VBG Lactic Acid Sodium Potassium Chloride Carbon Dioxide Anion Gap BUN Creatinine GFR Calculation Glucose Calcium Magnesium Total Bilirubin AST ALT Alkaline Phosphatase C-Reactive Protein Pending Total Protein Albumin Globulin Albumin/Globulin Ratio Procalcitonin Urine Color Yellow Urine Appearance Clear Urine pH 6.0 Ur Specific [place] 1.016 Urine Protein 30 A Urine Glucose (UA) Negative Urine Ketones Neg Urine Occult Blood Neg Urine Nitrate Neg Urine Bilirubin Neg Urine Urobilinogen Neg Ur Leukocyte Esterase Neg Urine RBC 0 Urine WBC 2 Ur Squamous Epith Cells 0 Ur Transition Epith Cell < 1 Urine Bacteria 0 Urine Mucus Few Ur Culture Indicated? No Nasal/Oral COVID-19 PCR Pending COVID-19 PCR Interp Pending 04/14/20 04/14/20 04/14/20 18:50 18:16 18:16 WBC RBC Hgb Hct MCV MCH MCHC RDW Plt Count MPV Gran % Lymph % (Auto) [place] % (Auto) Eos % (Auto) Baso % (Auto) Gran # Lymph # (Auto) [place] # (Auto) Eos # (Auto) Baso # (Auto) Total Counted Pending Band Neutrophils % Not Reportable Platelet Estimate Pending RBC Morphology Pending VBG Lactic Acid 1.1 Sodium 136 Potassium 4.5 Chloride 101 Carbon Dioxide 22 Anion Gap 13.0 BUN 20 Creatinine 1.3 H GFR Calculation 36 Glucose 120 H Calcium 9.3 Magnesium 1.5 L Total Bilirubin 0.7 AST 10 ALT 5 Alkaline Phosphatase 92 C-Reactive Protein Total Protein 5.7 L Albumin 2.9 L Globulin 2.8 Albumin/Globulin Ratio 1.0 Procalcitonin Urine Color Urine Appearance Urine pH Ur Specific [place] Urine Protein Urine Glucose (UA) Urine Ketones Urine Occult Blood Urine Nitrate Urine Bilirubin Urine Urobilinogen Ur Leukocyte Esterase Urine RBC Urine WBC Ur Squamous Epith Cells Ur Transition Epith Cell Urine Bacteria Urine Mucus Ur Culture Indicated? Nasal/Oral COVID-19 PCR COVID-19 PCR Interp 04/14/20 04/14/20 18:16 18:15 WBC 9.6 RBC 3.73 Hgb 11.5 Hct 35.9 MCV 96.2 MCH 30.8 MCHC 32.0 RDW 14.4 Plt Count 240 MPV 9.9 Gran % 82.3 H Lymph % (Auto) 8.2 L [place] % (Auto) 7.8 Eos % (Auto) 1.5 Baso % (Auto) 0.2 Gran # 7.87 Lymph # (Auto) 0.78 L [place] # (Auto) 0.75 Eos # (Auto) 0.14 Baso # (Auto) 0.02 Total Counted Band Neutrophils % Platelet Estimate RBC Morphology VBG Lactic Acid Sodium Potassium Chloride Carbon Dioxide Anion Gap BUN Creatinine GFR Calculation Glucose Calcium Magnesium Total Bilirubin AST ALT Alkaline Phosphatase C-Reactive Protein Total Protein Albumin Globulin Albumin/Globulin Ratio Procalcitonin 0.24 Urine Color Urine Appearance Urine pH Ur Specific [place] Urine Protein Urine Glucose (UA) Urine Ketones Urine Occult Blood Urine Nitrate Urine Bilirubin Urine Urobilinogen Ur Leukocyte Esterase Urine RBC Urine WBC Ur Squamous Epith Cells Ur Transition Epith Cell Urine Bacteria Urine Mucus Ur Culture Indicated? Nasal/Oral COVID-19 PCR COVID-19 PCR Interp A/P Narrative A/P Narrative: A: *PNA: *Sepsis w/hypotension (responded to IVFs) and AMS: *PE, right lung: -on room air currently *Generalized weakness/deconditioning: Has been hospitalized at [facility] recently and was in the ER at [facility] prior to that *CKD III: *HTN: *GERD: *Tobacco abuse: *Hypomagnesemia: *Afib: not on anticoag, did have h/o GI bleed 10/2018 and eliquis was stopped (believe this was for prior PE) *Gout: P: -IVF's -Zosyn, pending MRSA screen, BC/SC -Lovenox to NOAC -mag replace -hold home ARB/hctz for low bp - -pt/ot -ppx: lovenox/home H2 DNR Time Spent With Patient Time: Total time spent is greater than 50% in coordination of care (as documented) at patient's floor/unit and/or counseling patient:
[2020-04-14 23:25] LABS: Lymphocytes % 10 % (15-49); Monocytes % (Manual) 5 % (1-12); Platelet Estimate NORMAL (NORMAL); RBC Morphology NORMAL (NORMAL); Segmented Neutrophils % 85 % (38-78)
[2020-04-14] MEDS ORDERED: METOPROLOL TARTRATE 5 MG/5 ML VIAL IV PRN (23:29)
[2020-04-15] MEDS ORDERED: MAGNESIUM SULFATE 0 GM/0 ML BAG IV ONE (00:03)
[2020-04-15] MEDS ORDERED: MAGNESIUM SULFATE 8.12 MEQ/2 ML VIAL ONE (00:07)
[2020-04-15] MEDS: 0.9 % SODIUM CHLORIDE 10 ML SYRINGE IV SCH ×3 (05:57→21:02)
[2020-04-15] MEDS: PIPERACILLIN SODIUM/TAZOBACTAM 3.375 GM in DEXTROSE 5% IN WATER 50 ML IV SCH ×3 (05:57→21:02)
[2020-04-15 06:31] LABS: Basophils # (Auto) 0.01 K/mcL (0.00-0.30); Basophils % (Auto) 0.1 % (0.0-2.0); Eosinophils # (Auto) 0.04 K/mcL (0.00-0.70); Eosinophils % (Auto) 0.6 % (0.0-7.0); Granulocytes % (Auto) 81.5 % (38.0-78.0); Hematocrit 31.2 % (34.1-44.9); Lymphocytes % (Auto) 8.6 % (15.5-49.0); Mean Cell Volume 99.7 fL (80.0-100.0); Mean Corpuscular HGB Conc 32.1 g/dL (31.0-36.0); Mean Platelet Volume 9.8 fL (7.4-10.4); Monocytes # (Auto) 0.64 K/mcL (0.10-0.90); Monocytes % (Auto) 9.2 % (1.0-12.0); Platelet Count 202 K/mcL (140-440); RBC 3.13 M/mcL (3.59-5.38); Red Cell Distribution Width 14.6 % (11.5-14.5)
[2020-04-15 06:45] LABS: ALT/SGPT < 5 U/l (0-40); AST/SGOT 8 U/l (0-37); Albumin 2.3 gm/dL (3.2-5.2); Alkaline Phosphatase 71 U/L (39-117); Bilirubin,Direct < 0.2 mg/dL (0.0-0.3); Bilirubin,Total 0.4 mg/dL (0.0-1.0); Blood Urea Nitrogen 17 mg/dl (8-23); Carbon Dioxide 20 mmol/L (22-30); Chloride 104 mmol/L (96-108); Globulin 2.4 gm/dL (2.2-3.7); Glomerular Filtration Rate 40; Glucose 103 mg/dL (70-105); Lactate Dehydrogenase 182 U/L (94-250); Phosphorous 2.9 mg/dL (2.7-4.5); Triglycerides 62 mg/dl (<150); Uric Acid 5.4 mg/dL (2.5-8.0)
--- NOTE | 2020-04-15 07:41 | Internal Med Progress Note ---
SUBJECTIVE Subjective Patient information: Note initiated : 04/15/20 at 7:37 am Service Date, if different from initiated Date: [] Patient: Nga Krishnamurthy a 89 y/o F admitted on 04/14/20 for Weakness, Decreased appetite, fever. Chief Complaint: [] Interval history: Ms. Krishnamurthy is a 89 year old F Zentz to the ED with increased weakness poor appetite and cough for about 3 days. She does not recall if she has been fevers. She has about a UA today in the ED and found to be mildly hypotensive initially and tachycardic. She received several liters of fluid which brought her blood pressure up to the low 100s. CT chest abdomen pelvis showed some bilateral lower lobe infiltrates as well as some PEs in the right upper lobe and lower lobe lung. CT also showed right hilar lymphadenopathy. She does have a history of PE and was on Eliquis in the past but that was stopped in October 2018 because of GI bleed. And old notes show chronic bradycardia but she has declined a pacemaker although her heart rate here is tachycardic, unknown what baseline value is. Procalcitonin is borderline at 0.24. Lactate is okay. Patient was recently admitted to [facility] for significant weakness and recently also been into the [facility] ER for suspected opioid overdose., Blood pressure was elevated. Diagnosed with UTI. No showed atrial fibrillation. 04/15 No overnight or new complaints. Blood pressure stable overnight. Review of Systems: denies headache/fever/chills/nausea/vomiting/chest or abdominal pain/cough/d yspnea. Otherwise see above. Constitutional Vitals: Vital Signs Temp Pulse Resp BP Pulse Ox 97.0 F 72 14 141/62 96 04/15/20 04:00 04/15/20 06:31 04/15/20 06:31 04/15/20 06:31 04/15/20 06:31 Period Temp Pulse Resp BP Sys/[place] Pulse Ox Last 24 Hr 97.0 F-99.9 F 38-161 12-33 75-149/45-89 28-98 Intake and Output 04/14/20 04/15/20 04/15/20 21:59 05:59 13:59 Intake Total 1999 352 50 Output Total 1 Balance 1999 352 49 Weight 66.678 kg 70.896 kg Intake & Output: Intake & Output 04/14/20 04/15/20 04/15/20 21:59 05:59 13:59 Intake Total 1999 352 50 Output Total 1 Balance 1999 352 49 Weight 66.678 kg 70.896 kg Intake: IV 1999 352 50 Sodium Chloride 0.9% 1,000 ml @ 2000 Wide Open IV BOLUS ONE Rx#: [id number] Magnesium Sulfate 8.12 Meq In 52 Dextrose 5% in Water 50 ml @ 52 mls/hr IV ONCE ONE Rx#: [id number] Zosyn 3.375 gm In Dextrose 5% 50 50 in Water 50 ml @ 100 mls/hr IV Q8H ASTRID Rx#:[id number] Vancomycin 1,000 mg In Sodium 250 Chloride 0.9% 250 ml @ 250 mls/ hr IV ONCE ONE Rx#:[id number] Oral 0 Output: # of times incontinent of urine 1 Other: Urine Appearance Fem Cath Clear Urine Color Fem Cath Dark Yellow Exam: General: awake, No acute Distress Eyes/N/T: EOMI, Head/Neck: neck supple, CV: RRR, No murmurs, normal s1/s2 Pulm: mild b/l rhonchi, no wheezing Abd: soft, nontender, +BS x4 Ext: no clubbing/cyanosis/edema Neuro: awake and more alert today. Follows commands. no focal deficits, Skin: warm/dry OBJ DATA Labs CBC & Chem 7: 04/15/20 05:05 04/15/20 05:05 Labs: Abnormal Lab Results 04/15/20 04/15/20 04/14/20 05:05 05:05 20:50 RBC 3.13 L Hgb 10.0 L Hct 31.2 L RDW 14.6 H Gran % 81.5 H Lymph % (Auto) 8.6 L Lymph # (Auto) 0.60 L Seg Neutrophils % Lymphocytes % Carbon Dioxide 20 L Creatinine 1.2 H Glucose Calcium 8.0 L Magnesium C-Reactive Protein Total Protein 4.7 L Albumin 2.3 L Urine Protein 30 A 04/14/20 04/14/20 04/14/20 18:50 18:50 18:16 RBC Hgb Hct RDW Gran % Lymph % (Auto) Lymph # (Auto) Seg Neutrophils % 85 H Lymphocytes % 10 L Carbon Dioxide Creatinine 1.3 H Glucose 120 H Calcium Magnesium 1.5 L C-Reactive Protein 22.5 H Total Protein 5.7 L Albumin 2.9 L Urine Protein 04/14/20 18:16 RBC Hgb Hct RDW Gran % 82.3 H Lymph % (Auto) 8.2 L Lymph # (Auto) 0.78 L Seg Neutrophils % Lymphocytes % Carbon Dioxide Creatinine Glucose Calcium Magnesium C-Reactive Protein Total Protein Albumin Urine Protein Meds: Medications Acetaminophen (Tylenol) 650 mg PO Q6HP PRN PRN Reason: PAIN/FEVER > 101 Albuterol/Ipratropium (Duoneb) 3 ml NEB Q4HP PRN PRN Reason: Shortness Of Breath Docusate Sodium (Colace) 100 mg PO BID [facility] Enoxaparin Sodium (Lovenox) 60 mg SQ DAILY [facility] Gabapentin (Neurontin) 300 mg PO TID [facility] Norepinephrine Bitartrate 16 (mg/ Sodium Chloride) 250 mls @ 9.375 mls/hr IV Q24H [facility]; Protocol Sodium Chloride (Sodium Chloride 0.9%) 250 mls @ 20 mls/hr IV .[id number] PRN PRN Reason: Hypotension Piperacillin Sod/Tazobactam (Sod 3.375 gm/ Dextrose) 50 mls @ 100 mls/hr IV Q8H [facility]; Protocol Last Infusion: 04/15/20 06:33 Dose: Infused Documented by: Potassium Chloride 40 meq/ (Dextrose) 520 mls @ 130 mls/hr IV UD PRN PRN Reason: Potassium < 3 Magnesium Sulfate (Magnesium Sulfate) 2 gm in 50 mls @ 50 mls/hr IV UD PRN PRN Reason: Magnesium </= 1.6 Sodium Chloride (Sodium Chloride 0.9%) 1,000 mls @ 100 mls/hr IV .Q10H [facility] Stop: 04/15/20 19:29 Last Admin: 04/15/20 00:08 Dose: 100 mls/hr Documented by: Latanoprost (Xalatan Ophth Drops) 1 gtt OU HS [facility] Metoprolol Tartrate (Lopressor) 5 mg IV Q2HP PRN PRN Reason: Tachyarrhythmias HR>110 Ondansetron HCl (Zofran) 4 mg IV Q4HP PRN PRN Reason: Nausea And Vomiting Pantoprazole Sodium (Protonix) 40 mg IV QAMAC ASTRID Polyethylene Glycol (Miralax) 17 gm PO DAILYP PRN PRN Reason: Constipation Potassium Chloride (Kdur) 40 meq PO UD PRN PRN Reason: Potssium is 3-3.5 Potassium Chloride (Kdur) 40 meq PO UD PRN PRN Reason: Potassium < 3 Senna (Senokot) 2 tab PO DAILYP PRN PRN Reason: Constipation Sodium Chloride (Saline Flush) 10 ml IV Q8 [facility] Last Admin: 04/15/20 05:57 Dose: 10 ml Documented by: A/P Narrative A/P Narrative: A: *PNA: -strep neg *Sepsis w/Hypotension (responded to IVFs) and AMS: improved *PE, right lung: -on 2L NC with sats mid-high 90's *Generalized weakness/deconditioning: Has been hospitalized at [facility] recently and was in the ER at [facility] prior to that *CKD III: *HTN: *GERD: *Tobacco abuse: *Hypomagnesemia: improved *Afib: not on anticoag, did have h/o GI bleed 10/2018 and eliquis was stopped (believe this was for prior PE) -HR controlled w/o meds *Gout: P: -IVF's d/c -Zosyn, d/c vanco today,BC/SC -prn supp O2 -Lovenox to NOAC -restart home ARB in AM, hold home hctz for now -hold narcotics until mentation improved -pt/ot -Smoking cessation counseling -ppx: lovenox/home H2 DNR Time Spent With Patient Time: Total time spent is greater than 50% in coordination of care (as documented) at patient's floor/unit and/or counseling patient: QUALITY VTE Deep Vein Thrombosis/Pulmonary Embolism Present on Admission: Yes
--- NOTE | 2020-04-15 07:42 | XRay Report ---
HISTORY: Fever with shortness of breath FINDINGS: Heart is mild to moderately enlarged. This is unchanged since 11/07/18. Prominent increased interstitial lung markings are present in the lung bases, right greater than left. There may be a small right-sided pleural effusion. Moderate size retrocardiac hiatus hernia is again seen. There is no lobar consolidation. Calcified paratracheal lymph nodes are noted in the seen previously. The interstitial lung disease is a chronic or recurrent finding which was present at the time of prior chest CT done on 06/12/18. IMPRESSION: Mild interstitial lung disease in both lower lobes and small right-sided pleural effusion. This could be due to congestive heart failure or pneumonia. Underlying pulmonary fibrosis may be present. Stable cardiomegaly Interpreted and Authenticated by: Marquis Beckwith 04/15/20
[2020-04-15] MEDS: PANTOPRAZOLE 40 MG VIAL IV SCH (08:02)
--- NOTE | 2020-04-15 08:14 | Cat Scan Report ---
History: Fever, increased weakness, decreased appetite, back pain TECHNIQUE: Following injection of intravenous nonionic contrast the patient was scanned during the arterial phase from the thoracic inlet through the symphysis pubis. Sagittal and coronal reformats were created along with axial MIPS images of the chest. The radiation exposure was limited using dose reduction technology. FINDINGS: CHEST: There are multiple pulmonary emboli in the right lung involving all lobes. There is also a linear band of organized clot at the bifurcation of the right upper and right lower lobe pulmonary arteries. The central pulmonary artery is normal. There may be a small clot in a peripheral branch of the left lower lobe. A small layering right-sided pleural effusion is present. Right lung volume is smaller than the left. There is mild consolidation in the right lower lobe. There are bands of atelectasis and inferior segment lingula. There is also mild compressive atelectasis in the medial basal segment of the left lower lobe. Patient has a large retrocardiac hiatus hernia creating the compressive atelectasis. There is no evidence of a lung mass. There are a few reactive lymph nodes in the mediastinum. The heart is mildly enlarged. There is a moderate amount of atherosclerotic plaque in the coronary arteries. The aorta is normal in caliber and also has plaque. Patient has a goiter with nodules in both lobes of thyroid. Abdomen and pelvis: There are couple small cysts in the right lobe of liver. The liver is normal in size. There may be mild generalized fatty infiltration. The gallbladder is been removed. The bile ducts are nondilated. The pancreas, spleen and kidneys are normal. There is mild hyperplasia of the left adrenal. The right adrenal is normal. Densely calcified plaques are present along the wall of the aorta. The aorta is normal in caliber. There is a large amount of fecal material in the colon. There is no evidence of bowel obstruction. Multiple noninflamed diverticula are seen in the descending and sigmoid colon. The uterus and ovaries have been removed. The urinary bladder is unopacified but appears normal. Grade 2 spondylolisthesis is present at L5-S1 due to bilateral spondylolysis defects. There is an old moderate wedge compression fracture involving superior endplate of T12. Chronic advanced disc degeneration is seen at L2-3, L3-4, L4-5 and L5-S1. The fracture or degenerative changes in the spine are unchanged from the prior CT scan done on 11/07/18. IMPRESSION: Multiple pulmonary emboli in the right lung. Atelectasis or pneumonia in the right lower lobe Large hiatus hernia Small right-sided pleural effusion Diverticulosis but without diverticulitis Interpreted and Authenticated by: Marquis Beckwith 04/15/20
[2020-04-15] MEDS: DOCUSATE SODIUM 100 MG CAPSULE PO SCH ×2 (08:52→21:01)
[2020-04-15] MEDS: GABAPENTIN 300 MG CAPSULE PO SCH ×3 (08:53→21:00)
[2020-04-15] MEDS: hydrALAZINE 20 MG/ML VIAL IV PRN (12:43)
[2020-04-15] MEDS ORDERED: NOREPINEPHRINE BITARTRATE 16 MG in 0.9 % SODIUM CHLORIDE 234 ML IV PRN (14:15)
[2020-04-15] MEDS ORDERED: LATANOPROST OPHTH DROPS 2.5ML BOTTLE OU SCH (21:00)
[2020-04-15] MEDS: ENOXAPARIN 60 MG/0.6 ML SYRINGE SQ SCH (21:00)
[2020-04-16] MEDS: PIPERACILLIN SODIUM/TAZOBACTAM 3.375 GM in DEXTROSE 5% IN WATER 50 ML IV SCH ×3 (05:12→21:27)
[2020-04-16] MEDS: 0.9 % SODIUM CHLORIDE 10 ML SYRINGE IV SCH ×5 (05:15→21:03)
[2020-04-16 06:33] LABS: Basophils # (Auto) 0.01 K/mcL (0.00-0.30); Basophils % (Auto) 0.2 % (0.0-2.0); Eosinophils # (Auto) 0.03 K/mcL (0.00-0.70); Eosinophils % (Auto) 0.5 % (0.0-7.0); Granulocytes % (Auto) 81.8 % (38.0-78.0); Hematocrit 31.8 % (34.1-44.9); Lymphocytes # (Auto) 0.61 K/mcL (1.50-4.80); Lymphocytes % (Auto) 9.3 % (15.5-49.0); Mean Cell Volume 97.8 fL (80.0-100.0); Mean Corpuscular HGB Conc 31.4 g/dL (31.0-36.0); Mean Platelet Volume 9.7 fL (7.4-10.4); Monocytes # (Auto) 0.54 K/mcL (0.10-0.90); Monocytes % (Auto) 8.2 % (1.0-12.0); Platelet Count 233 K/mcL (140-440); RBC 3.25 M/mcL (3.59-5.38); Red Cell Distribution Width 14.4 % (11.5-14.5); WBC 6.6 K/mcL (4.50-11.00)
[2020-04-16] MEDS: PANTOPRAZOLE 40 MG VIAL IV SCH (06:36)
[2020-04-16 06:49] LABS: Blood Urea Nitrogen 14 mg/dl (8-23); C-Reactive Protein 12.2 mg/dl (0.0-0.8); Calcium 8.4 mg/dl (8.6-10.4); Carbon Dioxide 19 mmol/L (22-30); Chloride 105 mmol/L (96-108); Glomerular Filtration Rate 44; Glucose 87 mg/dL (70-105)
[2020-04-16] MEDS: GABAPENTIN 300 MG CAPSULE PO SCH ×3 (08:19→21:26)
[2020-04-16] MEDS: DOCUSATE SODIUM 100 MG CAPSULE PO SCH ×2 (08:38→21:03)
[2020-04-16] MEDS: ENOXAPARIN 60 MG/0.6 ML SYRINGE SQ SCH ×2 (08:45→21:26)
[2020-04-16] MEDS ORDERED: LOSARTAN 50 MG TABLET PO SCH (09:00)
[2020-04-16 13:21] LABS: INR 1.2 (0.9-1.1); Prothrombin Time 15.3 sec (11.9-14.5)
[2020-04-16] MEDS ORDERED: WARFARIN 2 MG TABLET PO ONE (14:00)
[2020-04-16] MEDS: hydrALAZINE 20 MG/ML VIAL IV PRN (14:45)
--- NOTE | 2020-04-16 15:35 | Internal Med Progress Note ---
SUBJECTIVE Subjective Patient information: Note initiated : 04/16/20 at 3:28 pm Service Date, if different from initiated Date: [] Patient: Nga Krishnamurthy a 89 y/o F admitted on 04/14/20 for Weakness, Decreased appetite, fever. Chief Complaint: [] Interval history: Ms. Krishnamurthy is a 89 year old F Zentz to the ED with increased weakness poor appetite and cough for about 3 days. She does not recall if she has been fevers. She has about a UA today in the ED and found to be mildly hypotensive initially and tachycardic. She received several liters of fluid which brought her blood pressure up to the low 100s. CT chest abdomen pelvis showed some bilateral lower lobe infiltrates as well as some PEs in the right upper lobe and lower lobe lung. CT also showed right hilar lymphadenopathy. She does have a history of PE and was on Eliquis in the past but that was stopped in October 2018 because of GI bleed. And old notes show chronic bradycardia but she has declined a pacemaker although her heart rate here is tachycardic, unknown what baseline value is. Procalcitonin is borderline at 0.24. Lactate is okay. Patient was recently admitted to [facility] for significant weakness and recently also been into the [facility] ER for suspected opioid overdose., Blood pressure was elevated. Diagnosed with UTI. No showed atrial fibrillation. 04/15 No overnight or new complaints. Blood pressure stable overnight. 04/16 Patient does not have any complaints. Denies shortness of breath or chest pain. Saturations fine on room air. Discussed anticoagulation therapy with the patient, she agreed with warfarin bridging with Lovenox. She has a history of GI bleeding on Eliquis last year. She told me that her is on warfarin. He has never had bleeding. Echocardiogram and procalcitonin were ordered. Review of Systems: denies headache/fever/chills/nausea/vomiting/chest or abdominal pain/cough/dys pnea. Otherwise see above. Constitutional Vitals: Vital Signs Temp Pulse Resp BP Pulse Ox 98.2 F 101 H 22 143/78 96 04/16/20 12:03 04/16/20 15:24 04/16/20 15:24 04/16/20 15:24 04/16/20 15:24 Period Temp Pulse Resp BP Sys/Vidales Pulse Ox Last 24 Hr 96.9 F-98.9 F 63-114 10-22 108-170/57-122 90-98 Intake and Output 04/16/20 04/16/20 04/16/20 05:59 13:59 21:59 Intake Total 0 170 50 Output Total 1 676 Balance -1 -506 50 Weight 69.456 kg Patient Weight 04/17/20 05:59 Weight 69.456 kg Intake & Output: Intake & Output 04/16/20 04/16/20 04/16/20 05:59 13:59 21:59 Intake Total 0 170 50 Output Total 1 676 Balance -1 -506 50 Weight 69.456 kg Intake: IV 50 50 Zosyn 3.375 gm In Dextrose 5% 50 50 in Water 50 ml @ 100 mls/hr IV Q8H [facility] Rx#:[id number] Oral 0 120 Output: Void Amount 75 # of times incontinent of urine 1 1 Urine/Stool Mix 600 Other: Meal Lunch Percent of Meal Consumed 75% Feeding Ability Independent Urine Appearance Clear Urine Color Dark Yellow Urine Odor Normal Stool Size Moderate Stool Color Brown Stool Consistency Soft Loose Exam: General: awake, No acute Distress Eyes/N/T: EOMI, Head/Neck: neck supple, CV: RRR, No murmurs, normal s1/s2 Pulm: mild b/l rhonchi, no wheezing Abd: soft, nontender, +BS x4 Ext: no clubbing/cyanosis/edema Neuro: awake and more alert today. Follows commands. no focal deficits, Skin: warm/dry OBJ DATA Labs CBC & Chem 7: 04/16/20 05:10 04/16/20 05:10 Labs: Abnormal Lab Results 04/16/20 04/16/20 04/16/20 12:18 05:10 05:10 RBC Hgb Hct RDW Gran % Lymph % (Auto) Lymph # (Auto) Seg Neutrophils % Lymphocytes % PT 15.3 H INR 1.2 H Carbon Dioxide 19 L Creatinine Glucose Calcium 8.4 L Magnesium C-Reactive Protein 12.2 H Total Protein Albumin Urine Protein 04/16/20 04/15/20 04/15/20 05:10 05:05 05:05 RBC 3.25 L 3.13 L Hgb 10.0 L 10.0 L Hct 31.8 L 31.2 L RDW 14.6 H Gran % 81.8 H 81.5 H Lymph % (Auto) 9.3 L 8.6 L Lymph # (Auto) 0.61 L 0.60 L Seg Neutrophils % Lymphocytes % PT INR Carbon Dioxide 20 L Creatinine 1.2 H Glucose Calcium 8.0 L Magnesium C-Reactive Protein Total Protein 4.7 L Albumin 2.3 L Urine Protein 04/14/20 04/14/20 04/14/20 20:50 18:50 18:50 RBC Hgb Hct RDW Gran % Lymph % (Auto) Lymph # (Auto) Seg Neutrophils % 85 H Lymphocytes % 10 L PT INR Carbon Dioxide Creatinine Glucose Calcium Magnesium C-Reactive Protein 22.5 H Total Protein Albumin Urine Protein 30 A 04/14/20 04/14/20 18:16 18:16 RBC Hgb Hct RDW Gran % 82.3 H Lymph % (Auto) 8.2 L Lymph # (Auto) 0.78 L Seg Neutrophils % Lymphocytes % PT INR Carbon Dioxide Creatinine 1.3 H Glucose 120 H Calcium Magnesium 1.5 L C-Reactive Protein Total Protein 5.7 L Albumin 2.9 L Urine Protein Meds: Medications Acetaminophen (Tylenol) 650 mg PO Q6HP PRN PRN Reason: PAIN/FEVER > 101 Albuterol/Ipratropium (Duoneb) 3 ml NEB Q4HP PRN PRN Reason: Shortness Of Breath Docusate Sodium (Colace) 100 mg PO BID [facility] Last Admin: 04/16/20 08:38 Dose: Not Given Documented by: Enoxaparin Sodium (Lovenox) 60 mg SQ BID [facility] Gabapentin (Neurontin) 300 mg PO TID [facility] Last Admin: 04/16/20 14:41 Dose: 300 mg Documented by: Hydralazine HCl (Apresoline) 0 mg IV Q2HP PRN PRN Reason: Hypertension Last Admin: 04/16/20 14:45 Dose: 20 mg Documented by: Sodium Chloride (Sodium Chloride 0.9%) 250 mls @ 20 mls/hr IV .[id number] PRN PRN Reason: Hypotension Piperacillin Sod/Tazobactam (Sod 3.375 gm/ Dextrose) 50 mls @ 100 mls/hr IV Q8H [facility]; Protocol Last Infusion: 04/16/20 15:10 Dose: Infused Documented by: Potassium Chloride 40 meq/ (Dextrose) 520 mls @ 130 mls/hr IV UD PRN PRN Reason: Potassium < 3 Magnesium Sulfate (Magnesium Sulfate) 2 gm in 50 mls @ 50 mls/hr IV UD PRN PRN Reason: Magnesium </= 1.6 Norepinephrine Bitartrate 16 (mg/ Sodium Chloride) 250 mls @ 9.375 mls/hr IV Q24HP PRN; Protocol PRN Reason: Hypotension Latanoprost (Xalatan Ophth Drops) 1 gtt OU HS [facility] Last Admin: 04/15/20 21:02 Dose: Not Given Documented by: Losartan Potassium (Cozaar) 100 mg PO QDAY [facility] Last Admin: 04/16/20 08:19 Dose: 100 mg Documented by: Metoprolol Tartrate (Lopressor) 5 mg IV Q2HP PRN PRN Reason: Tachyarrhythmias HR>110 Ondansetron HCl (Zofran) 4 mg IV Q4HP PRN PRN Reason: Nausea And Vomiting Pantoprazole Sodium (Protonix) 40 mg IV QAMAC [facility] Last Admin: 04/16/20 06:36 Dose: 40 mg Documented by: Polyethylene Glycol (Miralax) 17 gm PO DAILYP PRN PRN Reason: Constipation Potassium Chloride (Kdur) 40 meq PO UD PRN PRN Reason: Potssium is 3-3.5 Potassium Chloride (Kdur) 40 meq PO UD PRN PRN Reason: Potassium < 3 Senna (Senokot) 2 tab PO DAILYP PRN PRN Reason: Constipation Sodium Chloride (Saline Flush) 10 ml IV Q8 [facility] Last Admin: 04/16/20 14:30 Dose: 10 ml Documented by: Warfarin Sodium (Coumadin Per Pharmacy) 1 order PO UD [facility] A/P Narrative A/P Narrative: A: *PNA?: -strep neg -procalcitonin was ordered *Sepsis w/Hypotension (responded to IVFs) and AMS: improved/resolved *PE, right lung: -Oxygen saturation is fine, on room air -Echocardiogram *Generalized weakness/deconditioning: Has been hospitalized at [facility] recently and was in the ER at [facility] prior to that *CKD III: *HTN: *GERD: *Tobacco abuse: *Hypomagnesemia: improved *Afib: not on anticoag, did have h/o GI bleed 10/2018 and eliquis was stopped (believe this was for prior PE) -HR controlled w/o meds *Gout: P: -IVF's d/c -Zosyn, d/c vanco today,BC/SC -prn supp O2 -Warfarin (dosing by pharmacy) bridging with Lovenox -restart home ARB, hold home hctz for now -hold narcotics until mentation improved -pt/ot -Smoking cessation counseling -ppx: warfarin/lovenox/pantoprazole DNR SNF on Saturday Time Spent With Patient Time: Total time spent is greater than 50% in coordination of care (as documented) at patient's floor/unit and/or counseling patient: QUALITY VTE Deep Vein Thrombosis/Pulmonary Embolism Present on Admission: Yes
[2020-04-16] MEDS ORDERED: ONDANSETRON 4 MG/2 ML VIAL IV PRN (17:23)
[2020-04-16] MEDS ORDERED: SENNOSIDES 1 TABLET PO PRN (17:23)
[2020-04-16] MEDS ORDERED: POLYETHYLENE GLYCOL 3350 17 GM PACKET PO PRN (17:23)
[2020-04-16] MEDS ORDERED: 0.9 % SODIUM CHLORIDE 250 ML IV PRN (17:23)
[2020-04-16] MEDS ORDERED: IOPAMIDOL 100 ML BOTTLE IV ONE (17:23)
[2020-04-16] MEDS ORDERED: IPRATROPIUM/ALBUTEROL 3 ML AMPUL.NEB NEB PRN (17:23)
[2020-04-16 18:27] LABS: Basophils # (Auto) 0.01 K/mcL (0.00-0.30); Basophils % (Auto) 0.1 % (0.0-2.0); Eosinophils # (Auto) 0.04 K/mcL (0.00-0.70); Eosinophils % (Auto) 0.5 % (0.0-7.0); Granulocytes % (Auto) 78.2 % (38.0-78.0); Hematocrit 32.7 % (34.1-44.9); Hemoglobin 10.4 g/dL (11.2-15.7); Lymphocytes % (Auto) 11.6 % (15.5-49.0); Mean Cell Volume 98.2 fL (80.0-100.0); Mean Corpuscular HGB Conc 31.8 g/dL (31.0-36.0); Mean Platelet Volume 9.5 fL (7.4-10.4); Monocytes # (Auto) 0.75 K/mcL (0.10-0.90); Monocytes % (Auto) 9.6 % (1.0-12.0); Platelet Count 266 K/mcL (140-440); RBC 3.33 M/mcL (3.59-5.38); Red Cell Distribution Width 14.4 % (11.5-14.5); WBC 7.8 K/mcL (4.50-11.00)
[2020-04-16 18:50] LABS: ALT/SGPT 10 U/l (0-40); AST/SGOT 18 U/l (0-37); Albumin 2.6 gm/dL (3.2-5.2); Alkaline Phosphatase 80 U/L (39-117); Bilirubin,Total 0.3 mg/dL (0.0-1.0); Blood Urea Nitrogen 15 mg/dl (8-23); Calcium 8.9 mg/dl (8.6-10.4); Carbon Dioxide 21 mmol/L (22-30); Chloride 107 mmol/L (96-108); Globulin 2.5 gm/dL (2.2-3.7); Glomerular Filtration Rate 40; Glucose 109 mg/dL (70-105)
[2020-04-16] MEDS ORDERED: ENOXAPARIN 60 MG/0.6 ML SYRINGE SQ SCH (21:00)
[2020-04-16] MEDS: OMEPRAZOLE 20 MG CAPSULE PO SCH (21:26)
[2020-04-16] MEDS: LATANOPROST OPHTH DROPS 2.5ML BOTTLE OU SCH (21:27)
[2020-04-17] MEDS: hydrALAZINE 20 MG/ML VIAL IV PRN ×2 (04:12→05:47)
[2020-04-17] MEDS: 0.9 % SODIUM CHLORIDE 10 ML SYRINGE IV SCH ×5 (04:13→20:18)
[2020-04-17] MEDS: PIPERACILLIN SODIUM/TAZOBACTAM 3.375 GM in DEXTROSE 5% IN WATER 50 ML IV SCH (05:30)
[2020-04-17 05:49] LABS: INR 1.2 (0.9-1.1); Prothrombin Time 16.1 sec (11.9-14.5)
[2020-04-17] MEDS ORDERED: PANTOPRAZOLE 40 MG VIAL IV SCH (07:30)
[2020-04-17] MEDS: OMEPRAZOLE 20 MG CAPSULE PO SCH ×2 (07:32→17:35)
[2020-04-17] MEDS: VITAMIN D3 1,000 UNIT TABLET PO SCH (08:30)
[2020-04-17] MEDS: LOSARTAN 50 MG TABLET PO SCH (08:30)
[2020-04-17] MEDS: ACETAMINOPHEN 325 MG TABLET PO PRN ×2 (08:31→20:58)
[2020-04-17] MEDS: ENOXAPARIN 60 MG/0.6 ML SYRINGE SQ SCH ×2 (08:31→20:17)
[2020-04-17] MEDS: EZETIMIBE 10 MG TABLET PO SCH (08:31)
[2020-04-17] MEDS: GABAPENTIN 300 MG CAPSULE PO SCH ×3 (08:31→20:17)
[2020-04-17] MEDS: DOCUSATE SODIUM 100 MG CAPSULE PO SCH ×2 (08:33→20:18)
[2020-04-17] MEDS ORDERED: METOPROLOL TARTRATE 25 MG TABLET PO SCH (09:00)
--- NOTE | 2020-04-17 09:25 | XRay Report ---
HISTORY: Pulmonary emboli: Fever, weakness and decreased appetite FINDINGS: There is a mild alveolar infiltrate in the right lower lobe. This has not changed significantly since the CT scan done on 04/14/20. Small right-sided pleural effusion also remains stable. There are bands of scar or atelectasis at the left lung base. The heart is mildly enlarged. The pulmonary emboli seen on the recent chest CT are not identified on chest x-ray. No congestive heart failure is developed. 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 Overall there has been no change from 04/14/20. IMPRESSION: Stable mild atelectasis or pneumonia in the right lower lobe. Stable cardiomegaly. Stable small right-sided pleural effusion Interpreted and Authenticated by: Marquis Beckwith 04/17/20
[2020-04-17] MEDS: amLODIPine 5 MG TABLET PO SCH (09:53)
[2020-04-17] MEDS ORDERED: METOPROLOL TARTRATE 5 MG/5 ML VIAL IV PRN ×2 (09:59→10:56)
--- NOTE | 2020-04-17 10:04 | Internal Med Progress Note ---
SUBJECTIVE Subjective Patient information: Note initiated : 04/17/20 at 10:01 am Service Date, if different from initiated Date: [] Patient: Nga Krishnamurthy a 89 y/o F admitted on 04/14/20 for Weakness, Decreased appetite, fever. Chief Complaint: [] Interval history: Ms. Krishnamurthy is a 89 year old F [place]z to the ED with increased weakness poor appetite and cough for about 3 days. She does not recall if she has been fevers. She has about a UA today in the ED and found to be mildly hypotensive initially and tachycardic. She received several liters of fluid which brought her blood pressure up to the low 100s. CT chest abdomen pelvis showed some bilateral lower lobe infiltrates as well as some PEs in the right upper lobe and lower lobe lung. CT also showed right hilar lymphadenopathy. She does have a history of PE and was on Eliquis in the past but that was stopped in October 2018 because of GI bleed. And old notes show chronic bradycardia but she has declined a pacemaker although her heart rate here is tachycardic, unknown what baseline value is. Procalcitonin is borderline at 0.24. Lactate is okay. Patient was recently admitted to [facility] for significant weakness and recently also been into the [facility] ER for suspected opioid overdose., Blood pressure was elevated. Diagnosed with UTI. No showed atrial fibrillation. 04/15 No overnight or new complaints. Blood pressure stable overnight. 04/16 Patient does not have any complaints. Denies shortness of breath or chest pain. Saturations fine on room air. Discussed anticoagulation therapy with the patient, she agreed with warfarin bridging with Lovenox. She has a history of GI bleeding on Eliquis last year. She told me that her is on warfarin. He has never had bleeding. Echocardiogram and procalcitonin were ordered. 04/17 Pt feels fine. But she has a poor appetite. She had a loose stool 3 times yesterday. C. difficile was sent. Saturations are fine on room air Blood pressure is not controlled well Heart rate is controlled. I would like to start her on low-dose amlodipine and low-dose metoprolol. Patient does not have any clinical evidence of pneumonia. Procalcitonin is not high. I would like to repeat chest x-ray today. Still waiting for morning labs. If patient does not have will leukocytosis, I would discontinue Zosyn. IV fluid 50 cc/h was ordered Review of Systems: denies headache/fever/chills/nausea/vomiting/chest or abdominal pain/cough/dyspnea. Otherwise see above. Constitutional Vitals: Vital Signs Temp Pulse Resp BP Pulse Ox 98.9 F 83 20 130/67 98 04/17/20 07:49 04/17/20 09:53 04/17/20 09:53 04/17/20 09:53 04/17/20 09:53 Period Temp Pulse Resp BP Sys/Vidales Pulse Ox Last 24 Hr 97.5 F-98.9 F 50-101 11-22 105-178/55-97 92-98 Intake and Output 04/16/20 04/17/20 04/17/20 21:59 05:59 13:59 Intake Total 170 290 170 Output Total 0 1 176 Balance 170 289 -6 Weight 69.581 kg Intake & Output: Intake & Output 04/16/20 04/17/20 04/17/20 21:59 05:59 13:59 Intake Total 170 290 170 Output Total 0 1 176 Balance 170 289 -6 Weight 69.581 kg Intake: IV 50 50 50 Zosyn 3.375 gm In Dextrose 5% 50 50 50 in Water 50 ml @ 100 mls/hr IV Q8H [facility] Rx#:[id number] Oral 120 240 120 Output: Void Amount 0 175 # of times incontinent of urine 1 1 Other: Meal Dinner Breakfast Percent of Meal Consumed 50% 25% Feeding Ability Independent Urine Appearance Clear Urine Color Dark Yellow Stool Size Moderate Stool Color Green Stool Consistency Loose # Bowel Movements 1 # of times incontinent of 1 Bowels Exam: General: awake, No acute Distress Eyes/N/T: EOMI, Head/Neck: neck supple, CV: RRR, No murmurs, normal s1/s2 Pulm: mild b/l rhonchi, no wheezing Abd: soft, nontender, +BS x4 Ext: no clubbing/cyanosis/edema Neuro: awake and more alert today. Follows commands. no focal deficits, Skin: warm/dry OBJ DATA Labs CBC & Chem 7: 04/16/20 17:40 04/16/20 17:40 Labs: Abnormal Lab Results 04/17/20 04/16/20 04/16/20 04:18 17:40 17:40 RBC 3.33 L Hgb 10.4 L Hct 32.7 L RDW Gran % 78.2 H Lymph % (Auto) 11.6 L Lymph # (Auto) 0.90 L Seg Neutrophils % Lymphocytes % PT 16.1 H INR 1.2 H Carbon Dioxide 21 L Creatinine 1.2 H Glucose 109 H Calcium Magnesium C-Reactive Protein Total Protein 5.1 L Albumin 2.6 L Urine Protein 04/16/20 04/16/20 04/16/20 12:18 05:10 05:10 RBC Hgb Hct RDW Gran % Lymph % (Auto) Lymph # (Auto) Seg Neutrophils % Lymphocytes % PT 15.3 H INR 1.2 H Carbon Dioxide 19 L Creatinine Glucose Calcium 8.4 L Magnesium C-Reactive Protein 12.2 H Total Protein Albumin Urine Protein 04/16/20 04/15/20 04/15/20 05:10 05:05 05:05 RBC 3.25 L 3.13 L Hgb 10.0 L 10.0 L Hct 31.8 L 31.2 L RDW 14.6 H Gran % 81.8 H 81.5 H Lymph % (Auto) 9.3 L 8.6 L Lymph # (Auto) 0.61 L 0.60 L Seg Neutrophils % Lymphocytes % PT INR Carbon Dioxide 20 L Creatinine 1.2 H Glucose Calcium 8.0 L Magnesium C-Reactive Protein Total Protein 4.7 L Albumin 2.3 L Urine Protein 04/14/20 04/14/20 04/14/20 20:50 18:50 18:50 RBC Hgb Hct RDW Gran % Lymph % (Auto) Lymph # (Auto) Seg Neutrophils % 85 H Lymphocytes % 10 L PT INR Carbon Dioxide Creatinine Glucose Calcium Magnesium C-Reactive Protein 22.5 H Total Protein Albumin Urine Protein 30 A 04/14/20 04/14/20 18:16 18:16 RBC Hgb Hct RDW Gran % 82.3 H Lymph % (Auto) 8.2 L Lymph # (Auto) 0.78 L Seg Neutrophils % Lymphocytes % PT INR Carbon Dioxide Creatinine 1.3 H Glucose 120 H Calcium Magnesium 1.5 L C-Reactive Protein Total Protein 5.7 L Albumin 2.9 L Urine Protein Meds: Medications Acetaminophen (Tylenol) 650 mg PO Q6HP PRN PRN Reason: PAIN/FEVER > 101 Last Admin: 04/17/20 08:31 Dose: 650 mg Documented by: Albuterol/Ipratropium (Duoneb) 3 ml NEB Q4HP PRN PRN Reason: Shortness Of Breath Amlodipine Besylate (Norvasc) 2.5 mg PO DAILY [facility] Last Admin: 04/17/20 09:53 Dose: 2.5 mg Documented by: Docusate Sodium (Colace) 100 mg PO BID [facility] Last Admin: 04/17/20 08:33 Dose: Not Given Documented by: Ezetimibe (Zetia) 10 mg PO QDAY [facility] Last Admin: 04/17/20 08:31 Dose: 10 mg Documented by: Enoxaparin Sodium (Lovenox) 60 mg SQ BID [facility] Last Admin: 04/17/20 08:31 Dose: 60 mg Documented by: Gabapentin (Neurontin) 300 mg PO TID [facility] Last Admin: 04/17/20 08:31 Dose: 300 mg Documented by: Hydralazine HCl (Apresoline) 0 mg IV Q2HP PRN PRN Reason: Hypertension Last Admin: 04/17/20 05:47 Dose: 10 mg Documented by: Sodium Chloride (Sodium Chloride 0.9%) 250 mls @ 20 mls/hr IV .[id number] PRN PRN Reason: Hypotension Piperacillin Sod/Tazobactam (Sod 3.375 gm/ Dextrose) 50 mls @ 100 mls/hr IV Q8H [facility]; Protocol Last Infusion: 04/17/20 06:13 Dose: Infused Documented by: Sodium Chloride (Sodium Chloride 0.9%) 1,000 mls @ 50 mls/hr IV .Q20H [facility] Latanoprost (Xalatan Ophth Drops) 1 gtt OU HS [facility] Last Admin: 04/16/20 21:27 Dose: 1 drop Documented by: Losartan Potassium (Cozaar) 100 mg PO QDAY [facility] Last Admin: 04/17/20 08:30 Dose: 100 mg Documented by: Metoprolol Succinate (Toprol Xl) 6.25 mg PO DAILY [facility] Omeprazole (Prilosec) 20 mg PO BIDAC [facility] Last Admin: 04/17/20 07:32 Dose: 20 mg Documented by: Ondansetron HCl (Zofran) 4 mg IV Q4HP PRN PRN Reason: Nausea And Vomiting Polyethylene Glycol (Miralax) 17 gm PO DAILYP PRN PRN Reason: Constipation Senna (Senokot) 2 tab PO DAILYP PRN PRN Reason: Constipation Sodium Chloride (Saline Flush) 10 ml IV Q8 [facility] Last Admin: 04/17/20 04:13 Dose: 10 ml Documented by: Vitamin D (Vitamin D3) 2,000 unit PO DAILY [facility] Last Admin: 04/17/20 08:30 Dose: 2,000 unit Documented by: Warfarin Sodium (Coumadin Per Pharmacy) 1 order PO UD [facility] Warfarin Sodium (Coumadin) 4 mg PO ONCE@1400 ONE Stop: 04/17/20 14:01 A/P Narrative A/P Narrative: A: *PNA?: -strep neg -procalcitonin neg -CXR *Sepsis w/Hypotension (responded to IVFs) and AMS: improved/resolved *PE, right lung: -Oxygen saturation is fine, on room air -Echocardiogram *Generalized weakness/deconditioning: Has been hospitalized at [facility] recently and was in the ER at [facility] prior to that *CKD III: *HTN: *GERD: *Tobacco abuse: *Hypomagnesemia: improved *Afib: not on anticoag, did have h/o GI bleed 10/2018 and eliquis was stopped (believe this was for prior PE) -HR controlled w/o meds *Gout: *diarrhea? loose stool *Current smoker P: -IVF's d/c -Zosyn. repeat chest x-ray today. Still waiting for morning labs. If patient does not have will leukocytosis, I would discontinue Zosyn. -prn supp O2 -Warfarin (dosing by pharmacy) bridging with Lovenox -restart home ARB, hold home hctz. Added amlodipine 2.5mg daily and metoprolol XL 6.25mg daily. -hold narcotics until mentation improved -pt/ot -Smoking cessation counseling -ppx: warfarin/lovenox/pantoprazole -C diff was sent -IV NS 50mg/hr -Smoking cessation counseling, nicotine patch -Nutrition consult DNR SNF on Saturday Time Spent With Patient Time: Total time spent is greater than 50% in coordination of care (as documented) at patient's floor/unit and/or counseling patient: QUALITY VTE Deep Vein Thrombosis/Pulmonary Embolism Present on Admission: Yes
[2020-04-17] MEDS ORDERED: METOPROLOL SUCCINATE 25 MG TAB.XL.24H PO ONE ×2 (10:15→11:00)
[2020-04-17 10:18] LABS: Basophils # (Auto) 0.01 K/mcL (0.00-0.30); Basophils % (Auto) 0.2 % (0.0-2.0); Eosinophils # (Auto) 0.03 K/mcL (0.00-0.70); Eosinophils % (Auto) 0.5 % (0.0-7.0); Granulocytes % (Auto) 78.8 % (38.0-78.0); Hematocrit 35.4 % (34.1-44.9); Hemoglobin 11.4 g/dL (11.2-15.7); Lymphocytes # (Auto) 0.78 K/mcL (1.50-4.80); Lymphocytes % (Auto) 13.4 % (15.5-49.0); Mean Cell Volume 96.7 fL (80.0-100.0); Mean Corpuscular HGB Conc 32.2 g/dL (31.0-36.0); Mean Platelet Volume 9.4 fL (7.4-10.4); Monocytes # (Auto) 0.41 K/mcL (0.10-0.90); Monocytes % (Auto) 7.1 % (1.0-12.0); Platelet Count 301 K/mcL (140-440); RBC 3.66 M/mcL (3.59-5.38); Red Cell Distribution Width 14.3 % (11.5-14.5); WBC 5.8 K/mcL (4.50-11.00)
[2020-04-17] MEDS ORDERED: METOPROLOL TARTRATE 5 MG/5 ML VIAL IV SCH (10:30)
[2020-04-17 10:39] LABS: ALT/SGPT 11 U/l (0-40); AST/SGOT 16 U/l (0-37); Albumin 2.9 gm/dL (3.2-5.2); Alkaline Phosphatase 80 U/L (39-117); Bilirubin,Total 0.3 mg/dL (0.0-1.0); Blood Urea Nitrogen 12 mg/dl (8-23); Calcium 9.3 mg/dl (8.6-10.4); Carbon Dioxide 20 mmol/L (22-30); Chloride 105 mmol/L (96-108); Globulin 2.8 gm/dL (2.2-3.7); Glomerular Filtration Rate 40; Glucose 129 mg/dL (70-105)
[2020-04-17 11:04] LABS: INR 1.4 (0.9-1.1); Prothrombin Time 17.2 sec (11.9-14.5)
[2020-04-17] MEDS: NICOTINE 7 MG PATCH TOPICAL SCH (11:06)
[2020-04-17] MEDS: 0.9 % SODIUM CHLORIDE 1,000 ML IV SCH (11:08)
[2020-04-17] MEDS ORDERED: WARFARIN 2 MG TABLET PO ONE (14:00)
[2020-04-17] MEDS: LATANOPROST OPHTH DROPS 2.5ML BOTTLE OU SCH (20:17)
[2020-04-18] MEDS: hydrALAZINE 20 MG/ML VIAL IV PRN ×2 (03:43→06:06)
[2020-04-18] MEDS: 0.9 % SODIUM CHLORIDE 10 ML SYRINGE IV SCH ×4 (03:46→14:06)
[2020-04-18] MEDS: 0.9 % SODIUM CHLORIDE 1,000 ML IV SCH (06:06)
[2020-04-18 06:26] LABS: Basophils # (Auto) 0.01 K/mcL (0.00-0.30); Basophils % (Auto) 0.2 % (0.0-2.0); Eosinophils # (Auto) 0.01 K/mcL (0.00-0.70); Eosinophils % (Auto) 0.2 % (0.0-7.0); Granulocytes % (Auto) 74.3 % (38.0-78.0); Hematocrit 31.5 % (34.1-44.9); Hemoglobin 10.1 g/dL (11.2-15.7); Lymphocytes % (Auto) 16.7 % (15.5-49.0); Mean Cell Volume 96.9 fL (80.0-100.0); Mean Corpuscular HGB Conc 32.1 g/dL (31.0-36.0); Mean Platelet Volume 9.3 fL (7.4-10.4); Monocytes # (Auto) 0.36 K/mcL (0.10-0.90); Monocytes % (Auto) 8.6 % (1.0-12.0); Platelet Count 267 K/mcL (140-440); RBC 3.25 M/mcL (3.59-5.38); Red Cell Distribution Width 14.3 % (11.5-14.5); WBC 4.2 K/mcL (4.50-11.00)
[2020-04-18 06:44] LABS: INR 1.6 (0.9-1.1); Prothrombin Time 19.1 sec (11.9-14.5)
[2020-04-18 06:51] LABS: ALT/SGPT 9 U/l (0-40); AST/SGOT 12 U/l (0-37); Albumin 2.6 gm/dL (3.2-5.2); Albumin/Globulin Ratio 1.1 (1.0-2.3); Alkaline Phosphatase 67 U/L (39-117); Bilirubin,Total 0.2 mg/dL (0.0-1.0); Blood Urea Nitrogen 11 mg/dl (8-23); Calcium 8.6 mg/dl (8.6-10.4); Carbon Dioxide 20 mmol/L (22-30); Chloride 108 mmol/L (96-108); Globulin 2.4 gm/dL (2.2-3.7); Glomerular Filtration Rate 50; Glucose 86 mg/dL (70-105)
[2020-04-18] MEDS: OMEPRAZOLE 20 MG CAPSULE PO SCH (07:10)
[2020-04-18] MEDS: VITAMIN D3 1,000 UNIT TABLET PO SCH (08:21)
[2020-04-18] MEDS: amLODIPine 5 MG TABLET PO SCH (08:21)
[2020-04-18] MEDS: LOSARTAN 50 MG TABLET PO SCH (08:21)
[2020-04-18] MEDS: GABAPENTIN 300 MG CAPSULE PO SCH ×2 (08:21→14:25)
[2020-04-18] MEDS: ENOXAPARIN 60 MG/0.6 ML SYRINGE SQ SCH (08:22)
[2020-04-18] MEDS: EZETIMIBE 10 MG TABLET PO SCH (08:22)
[2020-04-18] MEDS ORDERED: LOPERAMIDE 2 MG CAPSULE PO PRN (08:22)
[2020-04-18] MEDS: DOCUSATE SODIUM 100 MG CAPSULE PO SCH (08:35)
[2020-04-18] MEDS ORDERED: METOPROLOL TARTRATE 25 MG TABLET PO SCH ×2 (09:00→21:00)
[2020-04-18] MEDS ORDERED: METOPROLOL SUCCINATE 25 MG TAB.XL.24H PO SCH (09:00)
[2020-04-18] MEDS: NICOTINE 7 MG PATCH TOPICAL SCH (09:23)
[2020-04-18] MEDS ORDERED: METOPROLOL TARTRATE 25 MG TABLET PO ONE (09:35)
[2020-04-18] MEDS ORDERED: WARFARIN 2 MG TABLET PO ONE (14:00)
--- NOTE | 2020-04-18 14:29 | Discharge Summary ---
Discharge Provider Provider Patient information: Note initiated : 04/18/20 at 2:08 pm Service Date, if different from initiated Date: [] Patient: Nga Krishnamurthy 89 y/o F admitted on 04/14/20 for Weakness, Decreased appetite, fever. Chief Complaint: [] Refer to hospiial course Date of admission: 04/14/20 23:44 Discharge date: 04/18/20 Primary care physician: Jannette Gutierrez Consults: 04/15/20 07:33 Consult to Physician [CONS] Routine Comment: Consulting Provider: Ronak Nazario Reason For Exam: Physician to Consult Discharge Meds Discharge Medications Home Medications alendronate 70 mg PO WEEKLY 06/17/17 [History Confirmed 04/14/20 Last Taken 06/19/17 08:00] latanoprost 1 gtt OU HS 06/17/17 [History Confirmed 04/14/20 Last Taken 06/19/17 21:00] gabapentin 300 mg capsule 300 mg PO TID 05/06/18 [History Confirmed 04/16/20 Last Taken Unknown] famotidine 20 mg PO DAILY 11/07/18 [History Confirmed 04/16/20 Last Taken Unknown] cholecalciferol (vitamin D3) 50 mcg (2,000 unit) tablet 2,000 unit PO QDAY #90 tab 03/08/20 [Rx Confirmed 04/14/20 Last Taken Unknown] losartan 25 mg PO QDAY 04/14/20 [History Confirmed 04/16/20 Last Taken Unknown] ezetimibe 10 mg PO QDAY 04/16/20 [History Confirmed 04/16/20 Last Taken Unknown] omeprazole 20 mg PO BID 04/16/20 [History Confirmed 04/16/20 Last Taken Unknown] amlodipine 2.5 mg PO DAILY 30 Days #30 tab 04/18/20 [Rx Last Taken Unknown] docusate sodium 100 mg PO BID #30 cap 04/18/20 [Rx Last Taken Unknown] enoxaparin [Lovenox] 60 mg SUBCUT BID 7 Days #8.4 ml 04/18/20 [Rx Last Taken Unknown] loperamide 2 mg PO PRN PRN #10 cap 04/18/20 [Rx Last Taken Unknown] metoprolol tartrate 12.5 mg PO BID #30 tab 04/18/20 [Rx Last Taken Unknown] oxycodone-acetaminophen [Percocet] 1 tab PO Q8H PRN #9 tab 04/18/20 [Rx Last Taken Unknown] polyethylene glycol 3350 [Miralax] 17 gm PO DAILYP PRN #15 ea 04/18/20 [Rx Last Taken Unknown] warfarin 4 mg PO QDAY #10 tab 04/18/20 [Rx Last Taken Unknown] COURSE Hospital Course Hospital course: Ms. Krishnamurthy is a 89 year old F [place] to the ED with increased weakness poor appetite and cough for about 3 days. She does not recall if she has been fevers. She has about a UA today in the ED and found to be mildly hypotensive initially and tachycardic. She received several liters of fluid which brought her blood pressure up to the low 100s. CT chest abdomen pelvis showed some bilateral lower lobe infiltrates as well as some PEs in the right upper lobe and lower lobe lung. CT also showed right hilar lymphadenopathy. She does have a history of PE and was on Eliquis in the past but that was stopped in October 2018 because of GI bleed. And old notes show chronic bradycardia but she has declined a pacemaker although her heart rate here is tachycardic, unknown what baseline value is. Procalcitonin is borderline at 0.24. Lactate is okay. Patient was recently admitted to [facility] for significant weakness and recently also been into the [facility] ER for suspected opioid overdose., Blood pressure was elevated. Diagnosed with UTI. No showed atrial fibrillation. A/P Narrative: A: *PE, right lung: -Oxygen saturation is fine, on room air -Echocardiogram - EF 45-50%. The right ventricle appears normal in size and function. Estimated PA systolic pressure is normal. -She has a history of GI bleeding on Eliquis last year. warfarin was started, bridging with lovenox. INR 1.6 today *PNA?: -strep neg -procalcitonin neg -CXR yesterday - Stable mild atelectasis or pneumonia in the right lower lobe. -no clinical evidence of PNA. -discontinued Zosyn -COVID-19 negative *Sepsis w/Hypotension (responded to IVFs) and AMS: resolved *Generalized weakness/deconditioning: Has been hospitalized at [facility] recently and was in the ER at [facility] prior to that *CKD III: Avoid nephrotoxic meds and repeat renal function. *HTN: *GERD: *Tobacco abuse: *Hypomagnesemia: *Afib with RVR: did have h/o GI bleed 10/2018 HR is controlled continue metoprolol 12.5mg bid warfarin *Gout: *diarrhea? loose stool -C. difficile negative *Current smoker -smoking cessation counseling, nicotine patch *Thyroid nodule and right hilar lymphadenopathy -follow with PCP 04/15 No overnight or new complaints. Blood pressure stable overnight. 04/16 Patient does not have any complaints. Denies shortness of breath or chest pain. Saturations fine on room air. Discussed anticoagulation therapy with the patient, she agreed with warfarin bridging with Lovenox. She has a history of GI bleeding on Eliquis last year. She told me that her is on warfarin. He has never had bleeding. Echocardiogram and procalcitonin were ordered. 04/17 Pt feels fine. But she has a poor appetite. She had a loose stool 3 times yesterday. C. difficile was sent. Saturations are fine on room air Blood pressure is not controlled well Heart rate is controlled. I would like to start her on low-dose amlodipine and low-dose metoprolol. Patient does not have any clinical evidence of pneumonia. Procalcitonin is not high. I would like to repeat chest x-ray today. Still waiting for morning labs. If patient does not have will leukocytosis, I would discontinue Zosyn. IV fluid 50 cc/h was ordered Today patient does not have any complaints. Vital signs are stable. He will be discharged to halfway today. She needs to follow with PCP in 3 days and cardiology (for atrial fib with RVR and other cardiovascular issues) in one week. She is on warfarin bridging with Lovenox now. INR 1.6 today. Please do adjust warfarin based on INR levels. She needs a PT and OT. Call PCP for medical issues. Discharge diagnosis: Pulmonary embolism Time Spent with Patient Time attestation: Total time spent providing and/or coordinating discharge services: EXAM Constitutional Vitals: Temp Pulse Resp BP Pulse Ox 98.1 F 88 17 128/81 95 04/18/20 14:02 04/18/20 12:05 04/18/20 14:02 04/18/20 14:02 04/18/20 14:02 Additional findings Additional findings: General: awake, No acute Distress Eyes/N/T: EOMI, Head/Neck: neck supple, CV: RRR, No murmurs, normal s1/s2 Pulm: mild b/l rhonchi, no wheezing Abd: soft, nontender, +BS x4 Ext: no clubbing/cyanosis/edema Neuro: awake and more alert today. Follows commands. no focal deficits, Skin: warm/dry Discharge Data Data Completed and Pending Labs on day of discharge: Labs from last 24 hours 04/18/20 04/18/20 04/18/20 05:05 05:05 05:05 WBC 4.2 L RBC 3.25 L Hgb 10.1 L Hct 31.5 L MCV 96.9 MCH 31.1 MCHC 32.1 RDW 14.3 Plt Count 267 MPV 9.3 Gran % 74.3 Lymph % (Auto) 16.7 [place] % (Auto) 8.6 Eos % (Auto) 0.2 Baso % (Auto) 0.2 Gran # 3.12 Lymph # (Auto) 0.70 L [place] # (Auto) 0.36 Eos # (Auto) 0.01 Baso # (Auto) 0.01 PT 19.1 H INR 1.6 H Sodium 140 Potassium 3.7 Chloride 108 Carbon Dioxide 20 L Anion Gap 12.0 BUN 11 Creatinine 1.0 GFR Calculation 50 Glucose 86 Calcium 8.6 Total Bilirubin 0.2 AST 12 ALT 9 Alkaline Phosphatase 67 Total Protein 5.0 L Albumin 2.6 L Globulin 2.4 Albumin/Globulin Ratio 1.1 Nasal/Oral COVID-19 PCR COVID-19 PCR Interp 04/14/20 18:57 WBC RBC Hgb Hct MCV MCH MCHC RDW Plt Count MPV Gran % Lymph % (Auto) [place] % (Auto) Eos % (Auto) Baso % (Auto) Gran # Lymph # (Auto) [place] # (Auto) Eos # (Auto) Baso # (Auto) PT INR Sodium Potassium Chloride Carbon Dioxide Anion Gap BUN Creatinine GFR Calculation Glucose Calcium Total Bilirubin AST ALT Alkaline Phosphatase Total Protein Albumin Globulin Albumin/Globulin Ratio Nasal/Oral COVID-19 PCR No ncov rna detected COVID-19 PCR Interp Cov rna not detected Preliminary micro results at discharge 04/14/20 18:40 Blood Culture - Preliminary Blood 04/14/20 18:46 Blood Culture - Preliminary Blood Discharge Plan Patient/Caregiver Discharge Instructions Activity: increase activity as tolerated Diet: Regular Diet Activity Restrictions/Additional Instructions: She needs to follow with PCP in 3 days and cardiology (for atrial fib with RVR and other cardiovascular issues) in one week. She is on warfarin bridging with Lovenox now. INR 1.6 today. Please do adjust warfarin based on INR levels. She needs a PT and OT. Call PCP for medical issues. Prescriptions: New loperamide 2 mg Capsule 2 mg PO PRN PRN (Reason: Diarrhea) Qty: 10 RF: 0 polyethylene glycol 3350 [Miralax] 17 gram Powder In Packet 17 gm PO DAILYP PRN (Reason: Constipation) Qty: 15 RF: 0 amlodipine 5 mg Tablet 2.5 mg PO DAILY 30 Days Qty: 30 RF: 0 docusate sodium 100 mg Capsule 100 mg PO BID Qty: 30 RF: 0 enoxaparin [Lovenox] 60 mg/0.6 mL Syringe 60 mg subcut BID 7 Days Qty: 8.4 RF: 0 warfarin 4 mg tablet 4 mg PO QDAY Qty: 10 RF: 0 oxycodone-acetaminophen [Percocet] 5-325 mg tablet 1 tab PO Q8H PRN (Reason: pain) Qty: 9 RF: 0 metoprolol tartrate 25 mg tablet 12.5 mg PO BID Qty: 30 RF: 0 Continued gabapentin 300 mg capsule 300 mg PO TID RF: 0 cholecalciferol (vitamin D3) 50 mcg (2,000 unit) tablet 2,000 unit PO QDAY Qty: 90 RF: 4 latanoprost 1 GTT bottle 1 gtt OU HS RF: 0 alendronate 70 MG tablet 70 mg PO WEEKLY RF: 0 famotidine 20 MG tablet 20 mg PO DAILY RF: 0 losartan 50 mg tablet 25 mg PO QDAY RF: 0 ezetimibe 10 mg Tablet 10 mg PO QDAY RF: 0 omeprazole 20 mg Tablet,Delayed Release (Dr/Ec) 20 mg PO BID RF: 0 Discontinued hydrochlorothiazide 25 mg tablet 25 mg PO QDAY Qty: 90 RF: 1 hydrocodone-acetaminophen 1 EACH tablet 1 - 2 tab PO Q4HP PRN (Reason: Pain) RF: 0 hydralazine 50 mg Tablet 50 mg PO BID RF: 0 ondansetron 4 mg Tablet,Disintegrating 4 mg PO Q6H PRN (Reason: Nausea And Vomiting) RF: 0 Other Ambulatory Orders: Prothrombin Time INR (Routine) Timeframe: 1 Day Facility: [facility] - Location: Laboratory Ordered By: Vidhi Rivero OT Discharge Order (Routine) Facility: [facility] - Location: [facility] Ordered By: Vidhi Rivero Physical Therapy at Discharge - General (Routine) Facility: [facility] - Location: [facility] Ordered By: Vidhi Rivero Follow Up Plan Follow up with: Jannette Gutierrez MD [Primary Care Provider] - (in 3 days. ) Unknown [Outside] (Cardiology in one week. ) Patient Disposition: Xfer SNF Prognosis: Critical Rehab Potential: Fair I certify that the patient requires SNF services: Yes Discharge Orders: Discharge Order (Routine); Ordered 04/18/20 Ordered By: Vidhi Rivero Interventions Interventions: Discharge Belongings Last Done: 04/18/20 14:31 IV at Discharge Last Done: 04/18/20 14:33 Discharge Vaccines Last Done: 04/18/20 14:34 QUALITY VTE Deep Vein Thrombosis/Pulmonary Embolism Present on Admission: Yes
[2020-04-19] MEDS ORDERED: METOPROLOL TARTRATE 25 MG TABLET PO SCH (09:00)
== END 2020-04-18 15:23 | DRG 871 ==
LOC: ED 17:20 → ICU 23:44
PROVIDERS: ADMIT Internal Medicine; ATTEND Internal Medicine